=== PATIENT | female | born 1975 | race Caucasian/White ===

== ENCOUNTER 2020-07-13 07:08 | Outpatient (CLI) | payer OTHER, SELFPAY ==
[2020-07-13 08:36] LABS: Alanine Aminotransferase 29 U/L (14-59); Albumin Level 4.2 g/dL (3.4-5.0); Alkaline Phosphatase 40 U/L (46-116); Anion Gap 5 mmol/L (8-16); Aspartate Amino Transferase 15 U/L (15-37); Bilirubin,Total 0.4 mg/dL (0.00-1.00); Blood Urea Nitrogen 19 mg/dL (7-18); Carbon Dioxide 29 mmol/L (21-32); Chloride 102 mmol/L (98-108); Cholesterol 176 mg/dL (0-200); Estimated Glomerular Filt Rate > 60; Glucose 94 mg/dL (70-99); HDL Direct 48 mg/dL (40-60); LDL Cholesterol Calculated 116 mg/dL (<130); Osmolality Calculated 284 mOsm/kg (285-295); Potassium 4.6 mmol/L (3.5-5.1); Sodium 136 mmol/L (136-145); Total Protein 7.4 g/dL (6.4-8.2); Triglycerides 58 mg/dL (0-150)
== END 2020-07-13 07:09 | disposition home or self-care (01) ==
LOC: CHSLAB 07:15
PROVIDERS: PCP Family Medicine; Visit Provider Family Medicine
DX: E03.9 Hypothyroidism, unspecified (principal)
CPT/HCPCS: 36415; 80053; 80061; 84443

== ENCOUNTER 2021-01-25 06:49 | Outpatient (CLI) | payer OTHER, SELFPAY ==
[2021-01-25 08:04] LABS: Alanine Aminotransferase 27 U/L (14-59); Albumin Level 3.6 g/dL (3.4-5.0); Alkaline Phosphatase 32 U/L (46-116); Anion Gap 8 mmol/L (8-16); Aspartate Amino Transferase 13 U/L (15-37); Bilirubin,Total 0.4 mg/dL (0.00-1.00); Blood Urea Nitrogen 14 mg/dL (7-18); Calcium 8.7 mg/dL (8.5-10.1); Carbon Dioxide 27 mmol/L (21-32); Chloride 106 mmol/L (98-108); Cholesterol 145 mg/dL (0-200); Estimated Glomerular Filt Rate > 60; Glucose 101 mg/dL (70-99); HDL Direct 47 mg/dL (40-60); LDL Cholesterol Calculated 88 mg/dL (<130); Osmolality Calculated 292 mOsm/kg (285-295); Potassium 4.2 mmol/L (3.5-5.1); Sodium 141 mmol/L (136-145); Thyroid Stimulating Hormone 0.37 uIU/mL (0.36-3.74); Total Protein 6.6 g/dL (6.4-8.2); Triglycerides 52 mg/dL (0-150)
== END 2021-01-25 06:50 | disposition home or self-care (01) ==
LOC: CHSLAB 06:51
PROVIDERS: PCP Physician Assistant; Visit Provider Physician Assistant
DX: E03.9 Hypothyroidism, unspecified (principal); I10 Essential (primary) hypertension
CPT/HCPCS: 36415; 80053; 80061; 84443

== ENCOUNTER 2021-02-22 06:58 | Outpatient (CLI) | payer OTHER, SELFPAY ==
[2021-02-22 07:29] LABS: Hemoglobin A1C 5.2 % (<5.7)
[2021-02-22 08:18] LABS: Anion Gap 6 mmol/L (8-16); Blood Urea Nitrogen 17 mg/dL (7-18); Calcium 8.7 mg/dL (8.5-10.1); Carbon Dioxide 28 mmol/L (21-32); Chloride 105 mmol/L (98-108); Estimated Glomerular Filt Rate > 60; Free T4 Free Thyroxine 1.01 ng/dL (0.76-1.46); Glucose 95 mg/dL (70-99); Osmolality Calculated 289 mOsm/kg (285-295); Potassium 4.5 mmol/L (3.5-5.1); Sodium 139 mmol/L (136-145); Thyroid Stimulating Hormone 0.45 uIU/mL (0.36-3.74)
[2021-02-25 04:58] LABS: Thyroid Peroxidase Antibodies <1 IU/mL (<9)
[2021-02-26 07:05] LABS: FSH 10.5 mIU/mL (***); LH 3.6 mIU/mL (***); Total Triiodothyronine (T3) 88.3 ng/dL (76-181)
== END 2021-02-22 06:59 | disposition home or self-care (01) ==
LOC: CHSLAB 06:59
PROVIDERS: PCP Physician Assistant; Visit Provider Physician Assistant
DX: E03.9 Hypothyroidism, unspecified (principal); N95.1 Menopausal and female climacteric states; R73.01 Impaired fasting glucose
CPT/HCPCS: 36415; 80048; 83001; 83002; 83036; 84439; 84443; 84480; 86376

== ENCOUNTER 2021-03-15 09:12 | Outpatient (CLI) | payer OTHER, SELFPAY | END 2021-03-15 09:13 | disposition home or self-care (01) | LOC: CHSLAB 09:15 | PROVIDERS: Family Medicine; PCP Physician Assistant; Visit Provider Physician Assistant | DX: B34.9 Viral infection, unspecified (principal) | CPT/HCPCS: 36415; 87486; 87581; 87633 ==

== ENCOUNTER 2021-07-23 14:24 | Outpatient (CLI) | payer OTHER, SELFPAY ==
--- NOTE | ~2021-07-23 | MM_ITS ---
EXAMINATION: MM screening jose BI w awilda HISTORY: Screening mammogram TECHNIQUE: Craniocaudal and mediolateral oblique 3-D tomosynthesis images were obtained and synthetic 2-D images were generated. CAD analysis was submitted and interpreted. COMPARISON: None, baseline BREAST PARENCHYMAL COMPOSITION: The breasts are heterogeneously dense, which may obscure small masses . FINDINGS: RIGHT BREAST: There are indeterminate calcifications in the anterior third of the breast. In addition , there are possible masses in the middle third of the breast. LEFT BREAST: There is asymmetry in the middle third of the outer breast on the mediolateral oblique v iews as well as lateral view. IMPRESSION: 1. Bilateral breast findings as described above. 2. Additional mammographic views and possible breast ultrasound are recommended. BI-RADS Category 0: Incomplete: Needs additional imaging evaluation. Reviewed, dictated and finalized at location A. ICAL RESEARCH SPEC IMPRESSION: 1. Bilateral breast findings as described above. 2. Additional mammographic views and possible breast ultrasound are recommended . BI-RADS Category 0: Incomplete: Needs additional imaging evaluation.
== END 2021-07-23 14:25 | disposition home or self-care (01) ==
PROVIDERS: PCP Physician Assistant; Visit Provider Obstetrics & Gynecology
DX: Z12.31 Encounter for screening mammogram for malignant neoplasm of breast (principal); R92.8 Other abnormal and inconclusive findings on diagnostic imaging of breast
CPT/HCPCS: 77063; 77067

== ENCOUNTER 2021-08-26 11:46 | Outpatient (CLI) | payer OTHER, SELFPAY ==
--- NOTE | ~2021-08-26 | MMUS_ITS ---
EXAMINATION: MM diagnostic jose BI w awilda, US breast BI limited HISTORY: Right breast calcifications and left breast asymmetry on screening mammogram TECHNIQUE: Additional 3-D tomosynthesis images of the breasts were performed and synthetic 2-D images were generated. Indication a also obtained of the right breast. CAD analysis was submitted and interpreted. High reso lution limited bilateral breast ultrasound was performed. COMPARISON: 07/23/2021 FINDINGS: MAMMOGRAPHIC FINDINGS: Right breast calcifications are amorphous on the craniocaudal view and linear on the lateral view, co nsistent with milk of calcium. There is a 6 mm oval, obscured, equal density mass in the middle third of the outer breast at the 9:00 location 6 cm from the nipple. Left breast: There is a 4 mm oval, circumscribed, equal density mass in the middle third of the lower -outer breast at the 5:00 location 7.5 cm from the nipple. In addition, there are grouped, punctate c alcifications in the anterior/middle third of the outer breast at the 3:00 location which are likely round in morphology. ULTRASOUND: Right breast: There is a 5 mm oval, circumscribed, parallel, hypoechoic mass with no posterior featur es or internal vascularity at the 9:00 location 2 cm from the nipple. Left breast: There is a 3 mm round, circumscribed, hypoechoic mass at the 5:00 location 1 cm from the nipple with no posterior features or internal vascularity. IMPRESSION: 1. Probably benign bilateral breast masses and probably benign calcifications of the left breast. 2. Recommend 6 month follow-up bilateral diagnostic mammogram and ultrasound. BI-RADS category 3, probably benign findings. Reviewed, dictated and finalized at location A. ISHING PRESS OPERATOR IMPRESSION: 1. Probably benign bilateral breast masses and probably benign calcifications o f the left breast. 2. Recommend 6 month follow-up bilateral diagnostic mammogram and ultrasound. BI-RADS category 3, probably benign findings.
== END 2021-08-26 11:47 | disposition home or self-care (01) ==
LOC: ANHIMG 11:47
PROVIDERS: PCP Physician Assistant; Visit Provider Obstetrics & Gynecology
DX: N64.89 Other specified disorders of breast (principal); R92.8 Other abnormal and inconclusive findings on diagnostic imaging of breast
CPT/HCPCS: 76642; 77062; 77066; G0279

== ENCOUNTER 2022-01-20 07:47 | Outpatient (CLI) | payer OTHER, SELFPAY ==
[2022-01-20 18:59] LABS: Alanine Aminotransferase 27 U/L (6-35); Albumin Level 4.7 g/dL (3.5-5.1); Alkaline Phosphatase 40 U/L (38-126); Anion Gap 10 mmol/L (8-16); Aspartate Amino Transferase 23 U/L (14-36); Bilirubin,Total 0.6 mg/dL (0.2-1.3); Blood Urea Nitrogen 20 mg/dL (7-17); Calcium 9.1 mg/dL (8.4-10.2); Carbon Dioxide 28 mmol/L (22-30); Chloride 101 mmol/L (98-107); Cholesterol 184 mg/dL (0-200); Estimated Glomerular Filt Rate > 60; Glucose 86 mg/dL (65-110); HDL Direct 50 mg/dL; Potassium 4.6 mmol/L (3.4-5.0); Sodium 139 mmol/L (137-145); Triglycerides 55 mg/dL (<150)
[2022-01-20 19:14] LABS: LDL Cholesterol Direct 100 mg/dL
[2022-01-20 20:17] LABS: Hemoglobin A1C 5.1 % (<5.7)
== END 2022-01-20 07:48 | disposition home or self-care (01) ==
PROVIDERS: PCP Physician Assistant; Visit Provider Physician Assistant
DX: E03.9 Hypothyroidism, unspecified (principal); R73.01 Impaired fasting glucose
CPT/HCPCS: 36415; 80053; 80061; 83036; 84443

== ENCOUNTER 2022-02-07 19:24 | Emergency (ER) | payer OTHER, SELFPAY ==
--- NOTE | ~2022-02-07 | XR_ITS ---
XR ankle LT min 3V 02/07/2022 19:50 INDICATION: Left ankle pain and swelling PROCEDURE: 4 views left ankle COMPARISON: No prior studies for comparison. FINDINGS: Fracture, dislocation or subluxation is not identified. There are degenerative calcaneal en thesophytes. There is a small ossific density just distal to the medial malleolus, likely related to remote trauma given the lack of associated soft tissue swelling. There is moderate lateral soft tissu e swelling. The soft tissues appear within normal limits. No foreign bodies are identified. IMPRESSION: 1: NO ACUTE BONE OR JOINT ABNORMALITY IDENTIFIED. Reviewed, dictated and finalized at location A.
[2022-02-07 19:28] VITALS: BP 116/65; PULSE 64; RESP 18; TEMP 36.6; O2SAT 100
--- NOTE | 2022-02-07 20:19 | ED_ITS ---
HPI - Extremity Injury (Lower) General Chief Complaint: Extremity Injury, Lower Stated Complaint: Left ankle injury Time Seen by Provider: 02/07/22 19:42 Source: patient and family Mode of arrival: ambulatory Limitations: no limitations History of Present Illness HPI Narrative: 46 years old white female presents with pain at the LT ankle after stepping out of her truck in a hole in the ground. She denies other injuries. Related Data Allergies Allergy/AdvReac Type Severity Reaction Status Date / Time bupropion [Wellbutrin] Allergy Intermediate Swelling Verified 02/07/22 19:32 of Lip/Tongue/Throat doxycycline Allergy Intermediate Hives Verified 02/07/22 19:32 Review of Systems Review of Systems: All systems reviewed & are unremarkable except as noted in HPI and below PMFSH Past Medical History Medical History Calcification of right breast on mammography Exam Narrative: General appearance: Well-developed, well-nourished Skin: Normal color Head: Normocephalic, nontraumatic Neck: Supple, nontender Vascular: Normal peripheral pulses, normal capillary refill. Musculoskeletal: LT ankle showed diffuse tenderness laterally. No swelling, no deformity, no bruises Neurologic: Alert and oriented ?3, NEUROPSYCHOLOGY SERVICE DIRECTOR is normal as tested, no gross motor deficit Course Vital Signs Vital signs: Vital Signs Temperature 36.6 C 02/07/22 19:28 Pulse Rate 64 02/07/22 19:28 Respiratory Rate 18 02/07/22 19:28 Blood Pressure 116/65 02/07/22 19:28 Pulse Oximetry 100 02/07/22 19:28 Oxygen Delivery Room Air 02/07/22 19:28 Temperature 36.6 C 02/07/22 19:28 Pulse Rate 64 02/07/22 19:28 Respiratory Rate 18 02/07/22 19:28 Blood Pressure 116/65 02/07/22 19:28 Pulse Oximetry 100 02/07/22 19:28 Oxygen Delivery Room Air 02/07/22 19:28 MDM - Extremity Injury (Lower) Imaging Data Radiologist's impression: Impressions Ankle X-Ray 02/07/22 19:52 IMPRESSION: 1: NO ACUTE BONE OR JOINT ABNORMALITY IDENTIFIED. Critical Care Time Critical Care Time Critical Care Time: No Discharge Plan Discharge Clinical Impression: Ankle sprain and strain Patient Disposition: Home, Self-Care Condition: Stable Instructions: Antibiotic Form, Ankle Sprain (ED), Ankle Stirrup Splint (ED) Additional Instructions: Return if symptoms are worsening , call your family physician for appointment, take Tylenol as as needed for aches and pain, continue home medications. Keep foot elevated, crutches, ice pack 20 minutes/h for the next 24 hours Prescriptions: New naproxen [Naprosyn] 500 mg tablet 500 mg PO BID PRN (Reason: pain) Qty: 14 0RF Follow-up/Referrals: Maki,SONIA Rahman [Primary Care Provider] -
[2022-02-07 21:17] VITALS: PULSE 72; RESP 17; O2SAT 98
== END 2022-02-07 21:23 | disposition home or self-care (01) ==
PROVIDERS: Emergency Provider Emergency Medicine; PCP Physician Assistant
DX: S93.402A Sprain of unspecified ligament of left ankle, initial encounter (principal); S96.912A Strain of unspecified muscle and tendon at ankle and foot level, left foot, initial encounter; X50.9XXA Other and unspecified overexertion or strenuous movements or postures, initial encounter
CPT/HCPCS: 73610; 99283

== ENCOUNTER 2022-05-20 08:23 | Outpatient (CLI) | payer OTHER, SELFPAY ==
[2022-05-20 18:58] LABS: Free T4 Free Thyroxine 1.64 ng/mL (0.78-2.19)
[2022-05-20 19:12] LABS: Total Triiodothyronine (T3) 0.95 NG/ML (0.97-1.69)
== END 2022-05-20 08:24 | disposition home or self-care (01) ==
LOC: ANHASCLAB 08:26
PROVIDERS: PCP Physician Assistant; Visit Provider Family Medicine
DX: E03.9 Hypothyroidism, unspecified (principal)
CPT/HCPCS: 36415; 84439; 84443; 84480

== ENCOUNTER 2022-05-27 08:20 | Outpatient (CLI) | payer OTHER, SELFPAY ==
[2022-05-27 19:24] LABS: Free T4 Free Thyroxine 1.19 ng/mL (0.78-2.19)
[2022-05-27 19:35] LABS: Total Triiodothyronine (T3) 0.86 NG/ML (0.97-1.69)
== END 2022-05-27 08:21 | disposition home or self-care (01) ==
PROVIDERS: PCP Physician Assistant; Visit Provider Family Medicine
DX: E03.9 Hypothyroidism, unspecified (principal)
CPT/HCPCS: 36415; 84439; 84443; 84480

== ENCOUNTER 2022-05-30 12:59 | Emergency (ER) | payer OTHER, SELFPAY ==
[2022-05-30 13:15] VITALS: BP 114/74; PULSE 70; RESP 18; TEMP 36.8; O2SAT 99
[2022-05-30 13:39] LABS: Basophils Percent Auto 0.3 % (0.2-1.2); Eosinophils Percent Auto 0.6 % (0-4.4); Hematocrit 45.2 % (37.0-47.0); Hemoglobin 15.8 g/dL (12.0-15.0); Immature Granulocyte Absolute 0.03 K/mm3 (0.00-0.031); Immature Granulocyte Percent A 0.4 % (0-0.5); Lymphocytes Absolute Auto 1.41 K/mm3 (0.9-3.2); Lymphocytes Percent Auto 20.3 % (18.3-44.2); Mean Corpuscular Hemoglobin 30.4 pg (26-34); Mean Corpuscular Volume 86.9 fl (80-100); Mean Platelet Volume 9.7 fl (7.4-10.4); Monocytes Absolute Auto 0.9 K/mm3 (0.1-0.6); Monocytes Percent Auto 13.1 % (2.6-8.5); Neutrophils Absolute Auto 4.5 K/mm3 (1.3-6.7); Neutrophils Percent Auto 65.3 % (45.5-73.1); Platelet Count Result 275 k/mm3 (150-375); White Blood Count 6.9 K/mm3 (4.5-10.0)
[2022-05-30 13:50] LABS: Alanine Aminotransferase 54 U/L (6-35); Albumin Level 4.5 g/dL (3.5-5.1); Alkaline Phosphatase 27 U/L (38-126); Anion Gap 9 mmol/L (8-16); Aspartate Amino Transferase 37 U/L (14-36); Bilirubin,Total 0.5 mg/dL (0.2-1.3); Blood Urea Nitrogen 15 mg/dL (7-17); Calcium 8.3 mg/dL (8.4-10.2); Carbon Dioxide 24 mmol/L (22-30); Chloride 98 mmol/L (98-107); Estimated CRCL calculation 96 ml/min; Estimated Glomerular Filt Rate > 60; Glucose 85 mg/dL (65-110); Lipase 44 U/L (23-300); Potassium 3.3 mmol/L (3.4-5.0); Sodium 131 mmol/L (137-145)
--- NOTE | 2022-05-30 13:55 | ED.GENADULT ---
HPI - General Adult General Chief complaint: Nausea/Vomiting/Diarrhea Stated complaint: diarrhea, vomiting Time Seen by Provider: 05/30/22 13:26 History of Present Illness HPI narrative: 47-year-old female presenting to the emergency department for evaluation of nausea vomiting and diarrhea. Patient states Wednesday she started having the nausea on she had onset of diarrhea. Patient does report intermittent associated abdominal cramping. Patient reports he has had a history of a but states she still has her gallbladder and her appendix. Patient denies any prior history of C. difficile. Related Data Allergies Allergy/AdvReac Type Severity Reaction Status Date / Time bupropion [Wellbutrin] Allergy Intermediate Swelling Verified 05/30/22 13:23 of Lip/Tongue/Throat doxycycline Allergy Intermediate Hives Verified 05/30/22 13:23 Review of Systems Review of Systems: CONSTITUTIONAL: Denies fever, chills, or sweats. EYES: Denies visual changes, redness, or discharge. ENT: Denies rhinorrhea, congestion, sore throat, or otalgia. CARDIOVASCULAR: Denies chest pain, palpitations, or edema. RESPIRATORY: Denies cough or dyspnea. GASTROINTESTINAL: See HPI GENITOURINARY: Denies dysuria or hematuria. SKIN: Denies rash or itching. MUSCULOSKELETAL: Denies back pain, joint pain, or myalgia. NEUROLOGIC: Denies headache, numbness, or weakness. [facility] Past Medical History Medical History Calcification of right breast on mammography Exam Narrative: APPEARANCE: Well appearing, no pain, no distress, well-nourished. HEAD: normocephalic, atraumatic. EYES: PERRLA/EOMI, conjunctivae clear. NOSE: Normal no drainage EARS:TMS clear with good light reflex. THROAT: Pharynx clear, no exudate. NECK: Supple. No adenopathy, no masses. RESPIRATORY: Airway patent, respirations nonlabored. Clear to auscultation bilaterally, no rales, rhonchi, wheezing. CARDIOVASCULAR: Regular rate and rhythm without murmurs rubs or gallops. ABDOMINAL: Soft, nontender, nondistended, normal bowel sounds MUSCULOSKELETAL: Moves all extremities. Strength/ROM intact, No edema, No calf tenderness. NEURO: Alert. Cranial nerves II through XII intact. Grossly intact SKIN: Warm, dry. Normal Color Course Course Emergency Course: Patient has minimal tenderness to palpation. Patient is afebrile with no leukocytosis. Patient's sodium was 131 and potassium was 3.3. Patient was treated with a liter of lactated Ringer's. Patient did feel improved with treatment. Patient was negative for influenza COVID and C. difficile. Patient was updated on the results of her work-up and plan for treatment at home. All questions concerns were addressed. Vital Signs Vital signs: Vital Signs Temperature 98.3 F 05/30/22 13:15 Pulse Rate 70 05/30/22 13:15 Respiratory Rate 18 05/30/22 13:15 Blood Pressure 114/74 05/30/22 13:15 Pulse Oximetry 99 05/30/22 13:15 Oxygen Delivery Room Air 05/30/22 13:15 Temperature 98.3 F 05/30/22 13:15 Pulse Rate 69 05/30/22 17:15 Respiratory Rate 18 05/30/22 17:15 Blood Pressure 115/68 05/30/22 17:15 Pulse Oximetry 100 05/30/22 17:15 Oxygen Delivery Room Air 05/30/22 13:15 Medical Decision Making Vital Signs Vital Signs: Vital Signs Temperature 98.3 F 05/30/22 13:15 Pulse Rate 70 05/30/22 13:15 Respiratory Rate 18 05/30/22 13:15 Blood Pressure 114/74 05/30/22 13:15 Pulse Oximetry 99 05/30/22 13:15 Oxygen Delivery Room Air 05/30/22 13:15 Temperature 98.3 F 05/30/22 13:15 Pulse Rate 69 05/30/22 17:15 Respiratory Rate 18 05/30/22 17:15 Blood Pressure 115/68 05/30/22 17:15 Pulse Oximetry 100 05/30/22 17:15 Oxygen Delivery Room Air 05/30/22 13:15 Lab Data Lab results reviewed: Yes I reviewed the patient's lab results. 05/30/22 13:30 05/30/22 13:30 Labs: Lab Resul
[2022-05-30 13:58] LABS: Influenza A QL RT-PCR Negative (Negative); Influenza B QL RT-PCR Negative (Negative); SARS-CoV-2 RNA PCR Negative
[2022-05-30] MEDS: LACTATED RINGERS 1,000 ML 999 ML IV CONT (14:06)
[2022-05-30 15:34] LABS: Appearance Urine Clear (Clear); Bilirubin Urine 1+ (Negative); Blood Urine Negative (Negative); Color Urine Yellow (Yellow); Glucose Urine UA Negative (Negative); Ketones Urine 1+ mg/dL (Negative); Leukocyte Esterase Ur Negative LEU/UL (Negative); Nitrate Urine Negative (Negative); Protein Urine 1+ mg/dL (Negative); Urobilinogen Urine 0.2 mg/dL (<2.0)
[2022-05-30 15:41] LABS: Bacteria Urine Trace /hpf; Mucus Urine Rare /lpf; RBC Urine 0-2 /hpf (0-2)
[2022-05-30 15:43] LABS: Add Urine Microscopic? YES
[2022-05-30 16:42] VITALS: BP 113/70; PULSE 69; RESP 18; O2SAT 99
[2022-05-30 16:51] LABS: Toxigenic C. Diff NEGATIVE (NEGATIVE)
[2022-05-30] MEDS: ONDANSETRON INJ 4 MG/2 ML VIAL IV PUSH (17:04)
[2022-05-30 17:15] VITALS: BP 115/68; PULSE 69; RESP 18; O2SAT 100
== END 2022-05-30 17:20 | disposition home or self-care (01) ==
PROVIDERS: Physician Assistant; Emergency Provider Emergency Medicine; PCP Family Medicine
DX: R11.2 Nausea with vomiting, unspecified (principal); Z20.822 Contact with and (suspected) exposure to COVID-19
CPT/HCPCS: 36415; 80053; 81001; 83690; 85025; 87045; 87427; 87493; 87636; 89055; 96361; 96374; 99284; J2405; J7120

== ENCOUNTER 2022-05-31 17:26 | Observation (INO) | payer OTHER, SELFPAY ==
[2022-05-31] VITALS (10 sets, daily range): BP systolic 104–144; BP diastolic 53–92; PULSE 57–77; RESP 13–19; TEMP 36.7–37.5; O2SAT 97–100; BMI 28.9
--- NOTE | ~2022-05-31 | CT_ITS ---
EXAMINATION: CT abdomen pelvis w con DATE: 05/31/2022 19:15 INDICATION: abd pain, diarrhea TECHNIQUE: Computed tomography (CT) of the abdomen and pelvis was performed with 100 mL Omnipaque-350 intravenous contrast. Automated exposure control and iterative reconstruction technique were employe d. The dose-length product was 573.11 mGy-cm. COMPARISON: None. FINDINGS: Lower thorax: Small hiatal hernia. Liver: Normal. Biliary/Gallbladder: Gallbladder is normal. No bile duct dilation. Pancreas: No mass or duct dilation. Spleen: Normal. Adrenals:No mass. Kidneys: No mass, stone, or hydronephrosis. GI tract: Distal esophageal and gastric wall edema. No small or large bowel dilation. Normal appendix . Mild diverticulosis without diverticulitis. Mostly fluid content in the large bowel. Mesentery/Peritoneum: No ascites, mass, or free air. Retroperitoneum: No mass. Mild atherosclerotic abdominal aortic and/or arterial calcifications. Pelvis: Partially filled urinary bladder with mild wall thickening. Normal uterus. Corpus luteal cyst s. Small volume free pelvic fluid, within physiologic range. Soft Tissues: Soft tissues and body wall unremarkable. Bones: No acute osseous finding. IMPRESSION: Hepatomegaly with steatosis. Mesenteric lymphadenopathy. Fluid-filled colon as can be seen with diarr heal illness. Bladder wall thickening likely secondary to under distention. Two corpus luteal cysts a re present in the right ovary, consider testing. Reviewed, dictated and finalized at location K. SAWYER IMPRESSION: Hepatomegaly with steatosis. Mesenteric lymphadenopathy. Fluid-filled colon as can be seen with diarrheal illness. Bladder wall thickening likely secondary to under distention. Two corpus luteal cysts are present in the right ovary, cons ider testing.
--- NOTE | ~2022-05-31 | US_ITS ---
US abdomen limited INDICATION: Transaminitis. PROCEDURE: Realtime right upper abdominal ultrasound. COMPARISON: No prior studies for comparison. FINDINGS: The pancreas is normal without focal mass or pancreatic ductal dilation. Liver echotexture is normal without focal mass or intrahepatic biliary dilatation. There is normal directional flow i n the portal vein. The gallbladder is normal without stones, gallbladder wall thickening or pericholecystic fluid. Comm on bile duct measures 3 mm. No sonographic Thacker's sign. IMPRESSION: 1: Normal limited abdominal ultrasound. Reviewed, dictated and finalized at location A. [employer]
--- NOTE | 2022-05-31 17:45 | ED.ABDPAIN ---
HPI - Abdominal Pain General Chief Complaint: Abdominal Pain <SONIA Harris Last Filed: 05/31/22 21:06> Stated Complaint: abdominal pain, n/v/d <SONIA Harris Last Filed: 05/31/22 21:06> Time Seen by Provider: 05/31/22 17:36 <SONIA Harris Last Filed: 05/31/22 21:06> Source: patient <SONIA Harris Last Filed: 05/31/22 21:06> Mode of arrival: ambulatory <SONIA Harris Last Filed: 05/31/22 21:06> Limitations: no limitations <SONIA Harris Last Filed: 05/31/22 21:06> History of Present Illness HPI narrative: This is a 47 year old female that presents to the ER for abdominal pain ongoing over the last 4 days. Reports associated nausea, vomiting and diarrhea. Reports she is having a lot of abdominal cramping and gas. She was evaluated in the ER yesterday and stool studies were sent. Reports worsening pain which prompted her to be seen again. Denies fever, or dysuria. <SONIA Harris Last Filed: 05/31/22 21:06> Related Data Home Medications: Home Medications Medication Instructions Recorded Confirmed fluoxetine 20 mg capsule 20 mg PO DAILY 05/31/22 05/31/22 <SONIA Harris Last Filed: 05/31/22 21:06> Allergies/Adverse Reactions: Allergies Allergy/AdvReac Type Severity Reaction Status Date / Time bupropion [Wellbutrin] Allergy Intermediate Swelling Verified 05/31/22 17:54 of Lip/Tongue/Throat doxycycline Allergy Intermediate Hives Verified 05/31/22 17:54 <SONIA Harris Last Filed: 05/31/22 21:06> Review of Systems Review of Systems: CONSTITUTIONAL: Denies fever GASTROINTESTINAL: Reports abdominal pain, nausea, vomiting, and diarrhea. GENITOURINARY: Denies dysuria or hematuria. <SONIA Harris Last Filed: 05/31/22 21:06> All systems reviewed & are unremarkable except as noted in HPI and below <Emma Mitchell PA-C - Last Filed: 05/31/22 21:06> PMFSH Past Medical History Medical History: Medical History (Updated 05/31/22 @ 21:06 by Emma Mitchell PA-C) Calcification of right breast on mammography History of hypertension History of hypothyroidism <Emma Mitchell PA-C - Last Filed: 05/31/22 21:06> Social History Social History: Social History (Updated 05/31/22 @ 18:50 by Emma Mitchell PA-C) Smoking status: Never smoker <Emma Mitchell PA-C - Last Filed: 05/31/22 21:06> Exam Narrative: GENERAL: Well-appearing, well-nourished, and in no acute distress. HEAD: Normocephalic, atraumatic. EYES: EOMI. CHEST: Clear to auscultation. No respiratory distress. No wheezes rales or rhonchi HEART: Regular rate and rhythm. No murmur heard. Normal peripheral pulses. ABDOMEN: Soft, nondistended, normal active bowel sounds. Tenderness to palpation throughout the abdomen, without guarding EXTREMITIES: Normal range of motion. No edema. SKIN: Warm, dry, no rash. NEURO: No focal deficits. Alert and oriented x3. PSYCH: Normal mood and affect <Emma Mitchell PA-C - Last Filed: 05/31/22 21:06> Course CONTACT WORKER/PA Physician Supervision For this patient encounter, I reviewed the CONTACT WORKER or PA documentation, treatment plan, and medical decision making; and I had [id number] time with this patient. <Jefry Hernandez MD - Last Filed: 05/31/22 21:51> Consultations Consultation #1: Spoke with hospitalist about patient and work-up who accepts admission <Emma Mitchell PA-C - Last Filed: 05/31/22 21:06> Date: 05/31/22 <Emma Mitchell PA-C - Last Filed: 05/31/22 21:06> Time: 21:06 <Emma Mitchell PA-C - Last Filed: 05/31/22 21:06> Vital Signs Vital signs: Vital Signs Temperature 99.5 F 05/31/22 17:29 Pulse Rate 73 05/31/22 17:29 Respiratory Rate 14 05/31/22 17:29 Blood Pressure 104/67 05/31/22 17:29 Pulse Oximetry 100 05/31/22 17:29 Temperature 99.5 F 05/31/22 17:29 Pulse Rate 57 L 05/31/22 21:
[2022-05-31 17:58] LABS: Basophils Percent Auto 0.2 % (0.2-1.2); Eosinophils Absolute Auto 0.2 K/mm3 (0-0.3); Eosinophils Percent Auto 1.6 % (0-4.4); Hematocrit 45.7 % (37.0-47.0); Hemoglobin 16.1 g/dL (12.0-15.0); Immature Granulocyte Absolute 0.02 K/mm3 (0.00-0.031); Immature Granulocyte Percent A 0.2 % (0-0.5); Lymphocytes Percent Auto 24.9 % (18.3-44.2); Mean Corpuscular HGB Conc 35.2 g/dl (32-36); Mean Corpuscular Hemoglobin 30.4 pg (26-34); Mean Corpuscular Volume 86.2 fl (80-100); Mean Platelet Volume 9.8 fl (7.4-10.4); Monocytes Absolute Auto 0.8 K/mm3 (0.1-0.6); Monocytes Percent Auto 8.2 % (2.6-8.5); Neutrophils Absolute Auto 6.3 K/mm3 (1.3-6.7); Neutrophils Percent Auto 64.9 % (45.5-73.1); Platelet Count Result 327 k/mm3 (150-375); White Blood Count 9.6 K/mm3 (4.5-10.0)
[2022-05-31 18:13] LABS: Alanine Aminotransferase 333 U/L (6-35); Albumin Level 4.7 g/dL (3.5-5.1); Alkaline Phosphatase 35 U/L (38-126); Anion Gap 11 mmol/L (8-16); Aspartate Amino Transferase 229 U/L (14-36); Bilirubin,Total 0.5 mg/dL (0.2-1.3); Blood Urea Nitrogen 7 mg/dL (7-17); Calcium 8.6 mg/dL (8.4-10.2); Carbon Dioxide 24 mmol/L (22-30); Chloride 102 mmol/L (98-107); Estimated CRCL calculation 78 ml/min; Estimated Glomerular Filt Rate > 60; Glucose 87 mg/dL (65-110); Lipase 64 U/L (23-300); Potassium 2.9 mmol/L (3.4-5.0); Sodium 137 mmol/L (137-145)
[2022-05-31] MEDS: SODIUM CHLORIDE 0.9% IV 1,000 ML 999 ML IV CONT (18:13)
[2022-05-31 19:07] LABS: Appearance Urine Clear (Clear); Bilirubin Urine Negative (Negative); Blood Urine Trace-intact (Negative); Color Urine Yellow (Yellow); Glucose Urine UA Negative (Negative); Ketones Urine Negative (Negative); Leukocyte Esterase Ur Negative LEU/UL (Negative); Nitrate Urine Negative (Negative); Protein Urine Negative (Negative); Specific Grav Ur <= 1.005 (1.001-1.035); Urobilinogen Urine 0.2 mg/dL (<2.0); pH Urine 5.5 (5.0-9.0)
[2022-05-31 19:16] LABS: Bacteria Urine Trace /hpf; Mucus Urine Rare /lpf; RBC Urine 0-2 /hpf (0-2); WBC Urine 0-3 /hpf
[2022-05-31 19:17] LABS: Add Urine Microscopic? YES
[2022-05-31] MEDS: POTASSIUM CHLORIDE INJ 40 MEQ in SODIUM CHLORIDE 0.9% IV 500 ML 130 MEQ IVPB (19:25)
[2022-05-31 19:43] LABS: Pregnancy On Board Control Positive; Urine Pregnancy Test Negative
[2022-05-31 20:19] LABS: Hepatitis B Surface Antigen Negative (Negative)
[2022-05-31 20:24] LABS: HAV RESULT Negative (Negative); Hepatitis B Core IgM Result Negative (Negative)
[2022-05-31 20:36] LABS: Hepatitis C Virus Antibody Negative (Negative)
--- NOTE | 2022-05-31 20:56 | PM.IMHP ---
H&P: HPI History of Present Illness Date/Time: 05/31/22 20:56 Chief Complaint: Diarrhea. Narrative: This is a 47-year-old female past medical history significant for hypertension, hypothyroidism, depression. 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 Denies any cough, sputum production. patient had been seen the day before in the emergency room and sent home however returns today after she lost count of number of diarrhea episodes. patient tested negative for COVID, influenza, hepatitis-A and B screening Preliminary workup was significant for potassium of 2.9, WBC count of 15,000, AST in the low 1000. CT of abdomen and pelvis was reported as: IMPRESSION: Hepatomegaly with steatosis. Mesenteric lymphadenopathy. Fluid-filled colon as can be seen with diarrheal illness. Bladder wall thickening likely secondary to under distention. Two corpus luteal cysts are present in the right ovary, consider testing. Review of Systems Review of Systems: diarrhea Constitutional: Constitutional: Denies chills, Denies fever(s), Denies malaise and Denies night sweats Eyes: Eyes: Denies change in vision ENT: Denies dysphagia, Denies vertigo, Denies dizziness and Denies odynophagia Cardiovascular: Cardiovascular: Denies chest pain, Denies irregular heart rhythm, Denies lightheadedness and Denies palpitations Respiratory: Respiratory: Denies cough, Denies pain on inspiration, Denies dyspnea on exertion and Denies wheezing Gastrointestinal: Gastrointestinal: Denies abdominal pain, Denies dyspepsia, Denies heartburn, Reports diarrhea, Denies nausea and Denies vomiting Genitourinary: Genitourinary: Denies dysuria Musculoskeletal: Musculoskeletal: Denies back pain, Denies myalgias, Denies joint swelling and Denies muscle weakness Integumentary/Breasts: Skin/Breast: Denies rash Neurologic: Denies vertigo, Denies dizziness, Denies focal weakness and Denies Sensory deficit (Neuro) Psychiatric: Psychiatric: Reports no additional psychiatric complaints and Reports as per HPI Endocrine: Endocrine: Denies cold intolerance, Denies flushing, Denies heat intolerance, Denies polyphagia, Denies polydipsia and Denies palpitations Hematologic/Lymphatic: Hematologic/Lymphatic: Reports no additional hematologic/lymphatic complaints and Reports as per HPI Allergic/Immunologic: Allergic/Immunologic: Reports no additional allergic/immunologic complaints and Reports as per HPI PMFSH Past Medical History Medical History (Updated 05/31/22 @ 21:06 by Emma Mitchell PA-C) Calcification of right breast on mammography History of hypertension History of hypothyroidism Family History Family History (Updated 05/31/22 @ 22:56 by Josephine Gomez RN) Mother Diabetes mellitus Sepsis Father Heart attack Emphysema of lung Social History Social History (Updated 05/31/22 @ 18:50 by Emma Mitchell PA-C) Smoking packs per day: 1 Smoking cigarettes per day: 20.0 Smoking status: Former smoker Alcohol intake: current Drinks per week: 1 Substance use: never Lack of Transportation: No Lack of Food: Never True Current Housing: I Have Housing Concerned About Future Housing: No Difficulty Paying Gas/Electric Bills: No Difficulty Paying for Meds: No Currently Unemployed: No Education: High School Diploma/GED Difficulty w/ Childcare or Family Care: No Spiritual care concerns: No Meds Home Medications and Allergies Home Medications Medication Instructions Recorded Confirmed Type ondansetron 4 mg disintegrating 4 mg PO Q
--- NOTE | 2022-05-31 20:59 | ECG_ITS ---
Measurements Intervals [place] Rate: 56 P: 71 MA: 161 QRS: 59 QRSD: 93 T: 57 QT: 402 QTc: 390 Interpretive Statements SINUS BRADYCARDIA NO PREVIOUS ECG AVAILABLE FOR COMPARISON Electronically Signed On 06-01-2022 11:16:22 SHEET MUSIC SALESPERSON by Jaylyn Renner M.D.
--- NOTE | 2022-05-31 22:36 | ADMGEN ---
This patient, Anna Vera, was admitted to Medical Room 252-01. Patient/family oriented to hospital policies and general routines including ID bracelet, bed and alarms, visiting hours, pain management, procedures, bathroom and other care routines, personal items, smoking policy, room service/diet, and visiting hours. Information on how to activate the Rapid Response Team has been discussed. Patient/Family are encouraged to report perceived risks to care and to ask questions if they do not understand what they are told or what they should do.
[2022-05-31 23:34] LABS: Magnesium 1.9 mg/dL (1.6-2.3)
[2022-06-01] VITALS (9 sets, daily range): BP systolic 104–110; BP diastolic 50–61; PULSE 56–72; RESP 16–18; TEMP 36.4–37.1; O2SAT 96–98
[2022-06-01] MEDS: DEXTROSE 5%/0.45% SOD CHL 1,000 ML 75 ML IV CONT (00:23)
[2022-06-01 06:44] LABS: Basophils Percent Auto 0.4 % (0.2-1.2); Eosinophils Absolute Auto 0.2 K/mm3 (0-0.3); Eosinophils Percent Auto 2.7 % (0-4.4); Hematocrit 38.9 % (37.0-47.0); Hemoglobin 13.4 g/dL (12.0-15.0); Immature Granulocyte Absolute 0.03 K/mm3 (0.00-0.031); Immature Granulocyte Percent A 0.4 % (0-0.5); Lymphocytes Absolute Auto 2.86 K/mm3 (0.9-3.2); Lymphocytes Percent Auto 40.3 % (18.3-44.2); Mean Corpuscular HGB Conc 34.4 g/dl (32-36); Mean Corpuscular Hemoglobin 29.8 pg (26-34); Mean Corpuscular Volume 86.6 fl (80-100); Mean Platelet Volume 9.9 fl (7.4-10.4); Monocytes Absolute Auto 0.7 K/mm3 (0.1-0.6); Monocytes Percent Auto 9.6 % (2.6-8.5); Neutrophils Absolute Auto 3.3 K/mm3 (1.3-6.7); Neutrophils Percent Auto 46.6 % (45.5-73.1); Platelet Count Result 269 k/mm3 (150-375); Red Blood Count 4.49 M/mm3 (4.2-5.4); Red Cell Distribution Width 12.1 % (11.5-14.5); White Blood Count 7.1 K/mm3 (4.5-10.0)
[2022-06-01 07:03] LABS: Alanine Aminotransferase 380 U/L (6-35); Albumin Level 3.5 g/dL (3.5-5.1); Alkaline Phosphatase 28 U/L (38-126); Anion Gap 6 mmol/L (8-16); Aspartate Amino Transferase 213 U/L (14-36); Bilirubin,Total 0.4 mg/dL (0.2-1.3); Blood Urea Nitrogen 5 mg/dL (7-17); Calcium 7.8 mg/dL (8.4-10.2); Carbon Dioxide 26 mmol/L (22-30); Chloride 103 mmol/L (98-107); Estimated CRCL calculation 94 ml/min; Estimated Glomerular Filt Rate > 60; Glucose 88 mg/dL (65-110); Potassium 3.1 mmol/L (3.4-5.0); Sodium 135 mmol/L (137-145)
--- NOTE | 2022-06-01 07:48 | PM.IMPN ---
Progress Note: A&P Assessment and Plan (1) Acute diarrhea: Code(s): R19.7 - Diarrhea, unspecified Status: Acute Assessment and Plan: She presented to the ED with c/o abd pain and diarrhea x [address] abd pelvis showed fluid-filled suggestive of diarrheal illness. Stool studies obtained from 05/30 ED visit negative. negative for hepatitis A and B GI consulted and appreciate recommendations. She was started on Ciprofloxacin PO BID and metronidazole TID, started 06/01 Diet advanced as tolerated. Continue IV fluids until able to take PO. Continue IV analgesics and antiemetics. (2) Transaminitis: Code(s): R74.01 - Elevation of levels of liver transaminase levels Status: Acute Assessment and Plan: AST/ALT elevated, Tbili and Alk phos within normal limits. CT abd/pelvis showed normal gallbladder and liver. right upper quadrant normal exam. Hepatitis panel negative. Trend LFTs. (3) Acute dehydration: Code(s): E86.0 - Dehydration Status: Acute Assessment and Plan: 2/2 volume loss from acute diarrhea. Continue IV fluids Monitor I/O and vital signs (4) Acute hypokalemia: Code(s): E87.6 - Hypokalemia Status: Acute Assessment and Plan: K 2.9 this admission. 2/2 acute diarrhea. She was given 40 mEQ IVPB on admission. 06/01/22 K 3.1 given additional 40 mEQ IVPB x1 and KCl added to maintenance fluids Monitor BMP Monitored on telemetry until hypokalemia resolved- no arrhythmia or ectopy. Plan CODE STATUS: FULL CODE Disposition: Observation Discharge disposition: home, possible discharge in am if tolerating diet. Time Spent With Patient Time with patient: 15 - 25 minutes Subjective Date/time seen: 06/01/22 07:48 She denies abdominal pain at this time. She does endorse frequent watery stools and 1 episode of emesis in the past few days, prior to admission. She denies fever, known sick contacts, antibiotic use in years, new or changes in medications. She thought her symptoms may have been secondary to bad food from this weekend, but none of her family is sick. She denies known episodes of diverticulitis; personal or family history of inflammatory bowel disease. She denies ever having similar symptoms and has never had a colonoscopy. Review of Systems Review of Systems: All systems reviewed & are unremarkable except as noted in HPI and below Exam Narrative: General: No acute distress.? Well-developed and well-groomed?adult female lying in bed. Mental Status/Psych: Awake, alert and oriented x4 with clear speech. Neutral mood and affect. Pleasant and cooperative. Skin: Skin fair, warm, dry and intact without rashes or lesions. No open wounds. Good turgor.? HEENT: Normocephalic. Sclera is non-icteric. Pupils equal and round. Grossly normal hearing. Oral mucosa moist. Tongue midline. Oropharynx within normal limits. Neck: Supple. Heart: S1 and S2 regular rate and rhythm. No murmurs, gallops, or rubs auscultated. Chest: Respirations even and unlabored. Lung sounds are clear to auscultation in all lobes bilaterally without wheezes, rhonchi, or rales. Abdomen: Soft, round and non-tender to palpation.? Bowel sounds present in all 4 quadrants. No guarding. Extremities:? Grossly normal ROM all extremities. No edema, erythema or calf tenderness. Radial and dorsalis pedis pulses +2 bilaterally. Neurological: No focal deficits. Cranial nerves 2-12 grossly intact. Objective Data Vital Signs Vital Signs: Vital Signs - 24 hr 05/31/22 17:29 05/31/22 19:26 05/31/22 19:36 Temperature 99.5 F Pulse Rate 73 62 64 Respiratory Rate 14 13 17 Blood Pressure 104/67 Pulse Oximetry 100 Oxygen Delivery 05/31/22 19:46 05/31/22 20:04 05/31/22 20:22 Temperature Pulse Rate 63 60 61 Respiratory Rate 14 16 19 Blood Pressure 144/84 H Pulse Oximetry 99 Oxygen Delivery 05/31/22 21:12 05/31/22 22:10 05/31/22 23:16 Temperature
--- NOTE | 2022-06-01 08:26 | WPDGICN ---
Assessment and Plan Assessment and plan (1) Acute diarrhea: Code(s): R19.7 - Diarrhea, unspecified Status: Acute Assessment and Plan: patient was diarrhea. Began 3 or 4 days ago. Likely related to an infectious etiology. Plan for stool cultures. IV rehydration. Empiric antibiotics including Flagyl and Cipro were encouraged this time. Advance diet as tolerated. Would recommend completing a course of antibiotics pending results of cultures. (2) Transaminitis: Code(s): R74.01 - Elevation of levels of liver transaminase levels Status: Acute Assessment and Plan: Patient noted to have elevated serum transaminases. Likely related to current infectious process. This could be viral or bacterial. Hepatitis serologies are initially negative. Would continue supportive care. Follow up LFTs are suggested after discharge to ensure complete resolution. (3) Acute dehydration: Code(s): E86.0 - Dehydration Status: Acute Assessment and Plan: Patient appeared to be somewhat dehydrated with electrolyte imbalance on presenting to the emergency room. IV rehydration may be of significant benefit. Would restart diet increase activity once repleted with IV fluids. GI Consult Note Consult date/time: 06/01/22 08:26 Reason for consult: Diarrhea and elevated transaminases. HPI: Anna Vera is a 47 year old female I have been asked to consult on at the request of the emergency room. Patient reports being in usual state of health until when she began to be nauseated. She developed diarrhea which began Wednesday and has persisted. She went to the emergency room on 2 occasions subsequently admitted to the hospital yesterday. Patient has had rather significant ongoing diarrhea. She denies any bleeding. Stool cultures are pending at this time. Patient does not normally have diarrhea. No one else in the family is ill. She denies any recent travel. Review of Systems Review of Systems: Review of systems noncontributory. [facility] Past Medical History Medical History (Updated 05/31/22 @ 21:06 by Emma Mitchell PA-C) Calcification of right breast on mammography History of hypertension History of hypothyroidism Family History Family History (Updated 05/31/22 @ 22:56 by Josephine Gomez RN) Mother Diabetes mellitus Sepsis Father Heart attack Emphysema of lung Social History Social History (Updated 05/31/22 @ 18:50 by Emma Mitchell PA-C) Smoking packs per day: 1 Smoking cigarettes per day: 20.0 Smoking status: Former smoker Alcohol intake: current Drinks per week: 1 Substance use: never Lack of Transportation: No Lack of Food: Never True Current Housing: I Have Housing Concerned About Future Housing: No Difficulty Paying Gas/Electric Bills: No Difficulty Paying for Meds: No Currently Unemployed: No Education: High School Diploma/GED Difficulty w/ Childcare or Family Care: No Spiritual care concerns: No Meds Home Medications and Allergies Home Medications Medication Instructions Recorded Confirmed Type ondansetron 4 mg disintegrating 4 mg PO Q8H PRN nausea and 05/30/22 05/31/22 Rx tablet vomiting #14 tabs fluoxetine 20 mg capsule 20 mg PO DAILY 05/31/22 05/31/22 History levothyroxine 112 mcg tablet 112 mcg PO DAILY 05/31/22 05/31/22 History lisinopril 30 mg tablet 30 mg PO DAILY 05/31/22 05/31/22 History Allergies Allergy/AdvReac Type Severity Reaction Status Date / Time bupropion [Wellbutrin] Allergy Intermediate Swelling Verified 05/31/22 17:54 of Lip/Tongue/Throat doxycycline Allergy Intermediate Hives Verified 05/31/22 17:54 Vital Signs Vital Signs - 24 hr 05/31/22 17:29 05/31/22 19:26 05/31/22 19:36 Temperature 99.5 F Pulse Rate 73 62 64 Respiratory Rate 14 13 17 Blood Pressure 104/67 Pulse Oximetry 100 Oxygen Delivery
[2022-06-01] MEDS: ENOXAPARIN 40 MG/0.4 ML SYRINGE SUB-Q (09:12)
[2022-06-01] MEDS: metroNIDAZOLE 250 MG TABLET 500 MG PO ×3 (09:12→21:15)
[2022-06-01] MEDS: CIPROFLOXACIN 250 MG TABLET PO ×2 (09:12→21:15)
[2022-06-01] MEDS: POTASSIUM CHLORIDE INJ 40 MEQ in SODIUM CHLORIDE 0.9% IV 500 ML 130 MEQ IVPB (09:13)
[2022-06-01 09:27] LABS: Atypical Lymphocytes Present; Platelet Estimate Adequate (Adequate); Schistocytes None Seen (NORMAL)
[2022-06-01] MEDS: KCL 40 MEQ/D5 1/2NS 1,000 ML 125 ML IV CONT ×2 (14:42→21:18)
[2022-06-02] VITALS: PULSE 56
[2022-06-02 04:00] VITALS: PULSE 48
[2022-06-02 05:21] VITALS: BP 106/57; PULSE 57; RESP 18; TEMP 36.9; O2SAT 99
[2022-06-02] MEDS: metroNIDAZOLE 250 MG TABLET 500 MG PO (05:36)
[2022-06-02] MEDS: KCL 40 MEQ/D5 1/2NS 1,000 ML 125 ML IV CONT (05:36)
[2022-06-02 06:00] LABS: Basophils Percent Auto 0.3 % (0.2-1.2); Eosinophils Absolute Auto 0.2 K/mm3 (0-0.3); Eosinophils Percent Auto 2.4 % (0-4.4); Hematocrit 37.8 % (37.0-47.0); Hemoglobin 12.9 g/dL (12.0-15.0); Immature Granulocyte Absolute 0.02 K/mm3 (0.00-0.031); Immature Granulocyte Percent A 0.3 % (0-0.5); Lymphocytes Absolute Auto 3.76 K/mm3 (0.9-3.2); Mean Corpuscular HGB Conc 34.1 g/dl (32-36); Mean Corpuscular Hemoglobin 30.6 pg (26-34); Mean Corpuscular Volume 89.6 fl (80-100); Mean Platelet Volume 10.3 fl (7.4-10.4); Monocytes Absolute Auto 0.4 K/mm3 (0.1-0.6); Monocytes Percent Auto 5.2 % (2.6-8.5); Neutrophils Absolute Auto 2.8 K/mm3 (1.3-6.7); Neutrophils Percent Auto 38.8 % (45.5-73.1); Platelet Count Result 287 k/mm3 (150-375); Red Blood Count 4.22 M/mm3 (4.2-5.4); Red Cell Distribution Width 12.4 % (11.5-14.5); White Blood Count 7.1 K/mm3 (4.5-10.0)
[2022-06-02 06:13] LABS: Alanine Aminotransferase 282 U/L (6-35); Albumin Level 3.5 g/dL (3.5-5.1); Alkaline Phosphatase 38 U/L (38-126); Anion Gap 6 mmol/L (8-16); Aspartate Amino Transferase 84 U/L (14-36); Bilirubin,Total 0.2 mg/dL (0.2-1.3); Blood Urea Nitrogen 7 mg/dL (7-17); Calcium 8.1 mg/dL (8.4-10.2); Carbon Dioxide 25 mmol/L (22-30); Chloride 106 mmol/L (98-107); Estimated CRCL calculation 111 ml/min; Estimated Glomerular Filt Rate > 60; Glucose 107 mg/dL (65-110); Potassium 3.9 mmol/L (3.4-5.0); Sodium 137 mmol/L (137-145)
[2022-06-02 08:00] VITALS: PULSE 50
[2022-06-02] MEDS: CIPROFLOXACIN 250 MG TABLET PO (09:10)
--- NOTE | 2022-06-02 09:43 | WPDGIPROGNO ---
Progress Note: A&P Assessment and Plan (1) Acute diarrhea: Code(s): R19.7 - Diarrhea, unspecified Status: Acute Assessment and Plan: Diarrhea resolving. Suspect she had infectious diarrhea. He etiology unclear as cultures are negative today. Recommend 7-10 day course of Cipro and Flagyl. She can be discharged. Follow-up with primary care service. (2) Transaminitis: Code(s): R74.01 - Elevation of levels of liver transaminase levels Status: Acute Assessment and Plan: LFTs are beginning to improve. Likely related to her infectious process. Recommend follow-up LFTs 1 week after discharge. No additional workup if these resolve on their own. Subjective Date/time seen: 06/02/22 09:43 Patient alert comfortable this morning. Feels much better. No additional significant diarrhea noted. Now on oral antibiotics empirically. Review of Systems Review of Systems: Review of systems noncontributory. Exam Narrative: Physical exam reveals patient to be alert. Vital signs stable. HEENT exam reveals no icterus. Lungs are clear to auscultation and percussion. Heart without murmur. Abdomen bowel sounds present soft nontender. Objective Data Vital Signs Vital Signs: Vital Signs - 24 hr 06/01/22 12:00 06/01/22 14:00 06/01/22 16:00 Temperature 98.7 F Pulse Rate 60 61 72 Respiratory Rate 16 Blood Pressure 110/55 L Pulse Oximetry 98 Oxygen Delivery 06/01/22 21:20 06/01/22 20:00 06/01/22 20:00 Temperature 98.2 F Pulse Rate 66 56 L Respiratory Rate 18 Blood Pressure 104/61 Pulse Oximetry 98 Oxygen Delivery Room Air 06/02/22 00:00 06/02/22 04:00 06/02/22 05:21 Temperature 98.4 F Pulse Rate 56 L 48 L 57 L Respiratory Rate 18 Blood Pressure 106/57 L Pulse Oximetry 99 Oxygen Delivery 06/02/22 08:00 06/02/22 09:10 Temperature Pulse Rate 50 L Respiratory Rate Blood Pressure Pulse Oximetry Oxygen Delivery Room Air Intake/Output Intake/Output: Intake & Output 05/30/22 05/31/22 06/01/22 06/02/22 23:59 23:59 23:59 23:59 Intake Total 1100 4196 1490 Output Total 2200 500 Balance 1100 1996 990 Meds/Results Medications: Active Medications Generic Name Dose Route Start Last Admin Trade Name Archie PRN Reason Stop Dose Admin Ciprofloxacin 250 mg 06/01/22 09:00 06/02/22 09:10 Ciprofloxacin 250 Mg Tablet PO 250 mg Q12HR DON Administration Enoxaparin Sodium 40 mg 06/01/22 09:00 06/02/22 09:12 Enoxaparin 40 Mg/0.4 Ml Syringe SUB-Q Not Given DAILY DON Potassium Chloride/Dextrose/Sod Cl 1,000 mls @ 125 mls/hr 06/01/22 12:00 06/02/22 05:36 Kcl 40 Meq/D5 1/2ns IV CONT 125 mls/hr .Q8H DON Administration Metronidazole 500 mg 06/01/22 08:00 06/02/22 05:36 Metronidazole 250 Mg Tablet PO 500 mg Q8HR DON Administration Radiology Results: ITS Impressions Abdomen/Pelvis CT 05/31/22 19:25 IMPRESSION: Hepatomegaly with steatosis. Mesenteric lymphadenopathy. Fluid-filled colon as can be seen with diarrheal illness. Bladder wall thickening likely secondary to under distention. Two corpus luteal cysts are present in the right ovary, consider testing. Abdomen Ultrasound 06/01/22 09:08 IMPRESSION: 1: Normal limited abdominal ultrasound. Labs Labs: Laboratory Results - last 24 hr 06/02/22 06/02/22 05:28 05:28 WBC 7.1 RBC 4.22 Hgb 12.9 Hct 37.8 MCV 89.6 MCH 30.6 MCHC 34.1 RDW 12.4 Plt Count 287 MPV 10.3 Immature Gran % (Auto) 0.3 Neut % (Auto) 38.8 L Lymph % (Auto) 53.0 H Miner % (Auto) 5.2 Eos % (Auto) 2.4 Baso % (Auto) 0.3 Lymph # (Auto) 3.76 H Miner # (Auto) 0.4 Eos # (Auto) 0.2 Baso # (Auto) 0.0 Abs Immat Gran (auto) 0.02 Absolute Neuts (auto) 2.8 Absolute Nucleated RBC 0.0 Nucleated RBC % 0.0 Sodium 137 Potassium 3.9 Chloride 106 Carbon Dioxide 25
--- NOTE | 2022-06-02 10:49 | PM.DS ---
DS: Admitting Diagnosis Discharge Date 06/02/22 1049 Admitting Diagnosis Acute diarrheaTransaminitis Acute dehydration Hypokalemia DS: Discharge Diagnosis Discharge Diagnosis (1) Infectious gastroenteritis and colitis: Code(s): A09 - Infectious gastroenteritis and colitis, unspecified Status: Acute Assessment and Plan: Suggested on CT scan. Improved with antibiotics (2) Acute diarrhea: Code(s): R19.7 - Diarrhea, unspecified Status: Acute Assessment and Plan: She presented to the ED with c/o abd pain and diarrhea x [address] abd pelvis showed fluid-filled suggestive of diarrheal illness. Stool studies obtained from 05/30 ED visit negative. negative for hepatitis A and B GI consulted and appreciate recommendations. She was started on Ciprofloxacin PO BID and metronidazole TID, started 06/01 Diet advanced to regular consistency diet with good tolerance. Treated with IV analgesics and antiemetics. (3) Transaminitis: Code(s): R74.01 - Elevation of levels of liver transaminase levels Status: Acute Assessment and Plan: AST/ALT elevated, Tbili and Alk phos within normal limits. Likely secondary to hepatic steatosis noted on CT scan CT abd/pelvis showed normal gallbladder and liver. right upper quadrant normal exam. Hepatitis panel negative. Repeat CMP in 1 week. (4) Hepatic steatosis: Code(s): K76.0 - Fatty (change of) liver, not elsewhere classified Status: Chronic Assessment and Plan: Suggested on CT scan (5) Acute dehydration: Code(s): E86.0 - Dehydration Status: Acute Assessment and Plan: 2/2 volume loss from acute diarrhea. Treated IV fluids (6) Acute hypokalemia: Code(s): E87.6 - Hypokalemia Status: Acute Assessment and Plan: K 2.9 this admission. 2/2 acute diarrhea. She was given 40 mEQ IVPB on admission. 06/01/22 K 3.1 given additional 40 mEQ IVPB x1 and KCl added to maintenance fluids Potassium 3.9 on discharge Monitored on telemetry until hypokalemia resolved- no arrhythmia or ectopy. DS: Summary Hospital Course Reason for hospitalization: Diarrhea Hospital Course: Anna Sanchez is a 47-year-old female with hypertension, hypothyroidism, and depression.? She presented to the emergency room for the second time for evaluation of numerous watery bowel movements in the last 2 days, She denied blood in the stools, changes in stool color, unplanned weight loss, vomiting, abdominal pain, fevers, rigors, or chills, She had been in her usual state of health prior to this with no sick contacts noted. 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 She tested negative for COVID, influenza A/B, and hepatitis-A and B screening? Preliminary workup was significant for potassium of 2.9, WBC count of 15,000,? AST 229, ALT 333. CT of abdomen and pelvis demonstrated Hepatomegaly with steatosis. Mesenteric lymphadenopathy. Fluid-filled colon as can be seen with diarrheal illness. She was admitted to the medical floor and treated with IV fluids and potassium chloride replacement. Gastroenterology was consulted and patient was started on PO ciprofloxacin 500 mg BID and PO metronidazole TID. Her symptoms improved and her diet was advanced. LFTs improved. She was discharged home in stable condition with additional 7 days of antibiotics and repeat CMP in 1 week for monitoring of transaminitis. Status at Discharge Cognitive/behavioral status at discharge: Alert and oriented x4 Functional status at discharge: independent ambulation Overall status at discharge: patient is back to baseline Time Spent with Patient Time attestation: Total time spent providing and/or coordinating discharge services: Time spent: Less than 30 minutes Exam Narrative: General: No acute distress.? Well-developed and well-groomed?adult female lying in bed. Mental Status/Psych: Awake, alert
== END 2022-06-02 11:58 | disposition home or self-care (01) ==
LOC: ANHED 21:06 → ANH2MED 06-01 08:18
PROVIDERS: Nurse Practitioner Family; Physician Assistant; Admitting Provider Internal Medicine; Emergency Provider Emergency Medicine; PCP Family Medicine; Visit Provider Family Medicine
DX: R19.7 Diarrhea, unspecified (principal); R74.01 Elevation of levels of liver transaminase levels; E86.0 Dehydration; E87.6 Hypokalemia; I10 Essential (primary) hypertension; E03.9 Hypothyroidism, unspecified; R71.8 Other abnormality of red blood cells; R11.2 Nausea with vomiting, unspecified; R16.0 Hepatomegaly, not elsewhere classified; K76.0 Fatty (change of) liver, not elsewhere classified; R00.1 Bradycardia, unspecified; R59.1 Generalized enlarged lymph nodes; N83.11 Corpus luteum cyst of right ovary; Z20.822 Contact with and (suspected) exposure to COVID-19; F10.90 Alcohol use, unspecified, uncomplicated; Z32.02 Encounter for pregnancy test, result negative; Z87.891 Personal history of nicotine dependence; Z79.899 Other long term (current) drug therapy
CPT/HCPCS: 36415; 74177; 76705; 80053; 80074; 81001; 81025; 83690; 83735; 85025; 93005; 96361; 96365; 96366; 96372; 96375; 99285; A9270; G0378; J0131; J1650; J3480; J7030; J7040; Q9967

== ENCOUNTER 2022-06-16 08:01 | Outpatient (CLI) | payer OTHER, SELFPAY ==
[2022-06-16 20:14] LABS: Alanine Aminotransferase 50 U/L (6-35); Albumin Level 4.5 g/dL (3.5-5.1); Alkaline Phosphatase 33 U/L (38-126); Aspartate Amino Transferase 27 U/L (14-36); Bilirubin,Total 0.5 mg/dL (0.2-1.3)
[2022-06-16 20:17] LABS: Alanine Aminotransferase 51 U/L (6-35); Albumin Level 4.6 g/dL (3.5-5.1); Alkaline Phosphatase 33 U/L (38-126); Anion Gap 6 mmol/L (8-16); Aspartate Amino Transferase 28 U/L (14-36); Bilirubin,Total 0.6 mg/dL (0.2-1.3); Blood Urea Nitrogen 15 mg/dL (7-17); Calcium 8.8 mg/dL (8.4-10.2); Carbon Dioxide 29 mmol/L (22-30); Chloride 99 mmol/L (98-107); Estimated Glomerular Filt Rate > 60; Glucose 75 mg/dL (65-110); Potassium 4.3 mmol/L (3.4-5.0); Sodium 134 mmol/L (137-145)
[2022-06-16 21:08] LABS: Free T4 Free Thyroxine 1.34 ng/mL (0.78-2.19)
[2022-06-16 21:17] LABS: Total Triiodothyronine (T3) 1.36 NG/ML (0.97-1.69)
== END 2022-06-16 08:02 | disposition home or self-care (01) ==
LOC: ANHASCLAB 08:03
PROVIDERS: Nurse Practitioner Family; PCP Family Medicine; Visit Provider Internal Medicine Gastroenterology
DX: E86.0 Dehydration (principal); R74.01 Elevation of levels of liver transaminase levels; E87.6 Hypokalemia; E03.9 Hypothyroidism, unspecified
CPT/HCPCS: 36415; 80053; 80076; 84436; 84439; 84443; 84480

== ENCOUNTER 2022-07-17 08:42 | Outpatient (CLI) | payer OTHER, SELFPAY ==
[2022-07-17 20:24] LABS: Free T4 Free Thyroxine 1.52 ng/mL (0.78-2.19)
[2022-07-17 20:37] LABS: Thyroid Stimulating Hormone 0.356 uIU/mL (0.465-4.680)
== END 2022-07-17 08:43 | disposition home or self-care (01) ==
LOC: ANHASCLAB 08:44
PROVIDERS: PCP Family Medicine; Visit Provider Family Medicine
DX: E03.9 Hypothyroidism, unspecified (principal)
CPT/HCPCS: 36415; 84436; 84439; 84443; 84480

== ENCOUNTER 2023-03-23 13:29 | Outpatient (CLI) | payer OTHER, SELFPAY ==
--- NOTE | ~2023-03-23 | MM_ITS ---
EXAMINATION: MM screening jose BI w awilda HISTORY: Screening mammogram TECHNIQUE: Craniocaudal and mediolateral oblique 3-D tomosynthesis images were obtained and synthetic 2-D images were generated. CAD analysis was submitted and interpreted. COMPARISON: 08/26/2021 diagnostic bilateral mammogram and Limited bilateral breast ultrasound. BREAST PARENCHYMAL COMPOSITION: There are scattered areas of fibroglandular density. FINDINGS: There are numerous scattered bilateral benign calcifications. There is no evidence of suspi cious mass, calcification, or architectural distortion to suggest malignancy in either breast. There has been no suspicious interval change. IMPRESSION: 1. No mammographic evidence of malignancy. 2. Recommend routine screening mammography in one year. BI-RADS Category 2: Benign finding(s). Reviewed, dictated and finalized at location A.
== END 2023-03-23 13:30 | disposition home or self-care (01) ==
PROVIDERS: PCP Family Medicine; Visit Provider Obstetrics & Gynecology
DX: Z12.31 Encounter for screening mammogram for malignant neoplasm of breast (principal)
CPT/HCPCS: 77063; 77067

== ENCOUNTER 2023-04-08 07:39 | Outpatient (CLI) | payer OTHER, SELFPAY ==
[2023-04-08 19:32] LABS: Alanine Aminotransferase 41 U/L (6-35); Albumin Level 4.5 g/dL (3.5-5.1); Alkaline Phosphatase 32 U/L (38-126); Anion Gap 5 mmol/L (8-16); Aspartate Amino Transferase 44 U/L (14-36); Bilirubin,Total 0.6 mg/dL (0.2-1.3); Blood Urea Nitrogen 23 mg/dL (7-17); Calcium 9.2 mg/dL (8.4-10.2); Carbon Dioxide 32 mmol/L (22-30); Chloride 100 mmol/L (98-107); Cholesterol 174 mg/dL (0-200); Estimated Glomerular Filt Rate > 60; Glucose 79 mg/dL (65-110); HDL Direct 44 mg/dL; Potassium 4.1 mmol/L (3.4-5.0); Sodium 137 mmol/L (137-145); Triglycerides 47 mg/dL (<150)
[2023-04-08 19:44] LABS: LDL Cholesterol Direct 99 mg/dL
[2023-04-08 20:02] LABS: Free T4 Free Thyroxine 1.33 ng/mL (0.78-2.19); Total Triiodothyronine (T3) 0.93 NG/ML (0.97-1.69)
[2023-04-08 22:09] LABS: Hemoglobin A1C 4.9 % (<5.7)
== END 2023-04-08 07:40 | disposition home or self-care (01) ==
LOC: ANHASCLAB 07:41
PROVIDERS: PCP Family Medicine; Visit Provider Family Medicine
DX: E03.9 Hypothyroidism, unspecified (principal); R73.01 Impaired fasting glucose
CPT/HCPCS: 36415; 80053; 80061; 83036; 84439; 84443; 84480

== ENCOUNTER 2023-09-18 09:48 | Outpatient (CLI) | payer OTHER, SELFPAY ==
--- NOTE | ~2023-09-18 | MR_ITS ---
EXAMINATION: MR pelvis wo/w con DATE: 09/18/2023 10:54 INDICATION: Localized swelling, mass and lump, trunk. Left gluteal mass. TECHNIQUE: Magnetic resonance imaging (MRI) of the pelvis was performed without and with 15 mL MultiH ance intravenous contrast. COMPARISON: CT abdomen and pelvis 05/31/2022 FINDINGS: There is an enhancing mass in the left perianal region extending inferolaterally in the subcutaneous fat of the inferior left buttock measuring 8.6 x 2.9 x 2.1 cm. There is a central fluid component in the mass measuring approximately 1 mL. There are no pathologically enlarged lymph nodes. IMPRESSION: 1. Left perianal mass with small fluid component, consistent with an abscess. Reviewed, dictated and finalized at location E.
== END 2023-09-18 09:49 | disposition home or self-care (01) ==
LOC: ANHIMG 09:51
PROVIDERS: PCP Family Medicine; Visit Provider Surgery
DX: R22.2 Localized swelling, mass and lump, trunk (principal)
CPT/HCPCS: 72197; A9577

== ENCOUNTER 2023-09-22 10:17 | Outpatient (CLI) | payer OTHER, SELFPAY ==
[2023-09-22 12:35] LABS: Anion Gap 5 mmol/L (4-12); Blood Urea Nitrogen 18 mg/dL (7-17); Calcium 9.6 mg/dL (8.4-10.2); Carbon Dioxide 31 mmol/L (22-30); Chloride 101 mmol/L (98-107); Estimated Glomerular Filt Rate > 60; Glucose 71 mg/dL (65-110); Potassium 3.9 mmol/L (3.4-5.0); Sodium 137 mmol/L (137-145)
[2023-09-22 12:41] LABS: Prothrombin Time 13.2 Seconds (11.1-14.7)
[2023-09-22 12:42] LABS: Partial Thromboplastin Time 30.3 Seconds (22.3-36.8)
== END 2023-09-22 10:18 | disposition home or self-care (01) ==
LOC: ANHASCLAB 10:20
PROVIDERS: PCP Family Medicine; Visit Provider Anesthesiology
DX: K76.0 Fatty (change of) liver, not elsewhere classified (principal); Z01.818 Encounter for other preprocedural examination
CPT/HCPCS: 36415; 80048; 85610; 85730

== ENCOUNTER 2023-09-23 16:18 | Outpatient (CLI) | payer OTHER, SELFPAY ==
--- NOTE | 2023-09-23 16:26 | ECG_ITS ---
Measurements Intervals [place] Rate: 60 P: 81 ID: 160 QRS: 71 QRSD: 97 T: 74 QT: 396 QTc: 398 Interpretive Statements SINUS RHYTHM VENTRICICULAR BIGEMINY INCOMPLETE RIGHT BUNDLE BRANCH BLOCK ABNORMAL ECG COMPARED TO ECG 05/31/2022 21:40:14 SINUS RHYTHM NOW PRESENT VENTRICULAR BIGEMINY NOW PRESENT INCOMPLETE RIGHT BUNDLE-BRANCH BLOCK NOW PRESENT Electronically Signed On 09-23-2023 16:38:34 CDT by Deondre Doll D.O.
== END 2023-09-23 16:19 | disposition home or self-care (01) ==
LOC: CHSIMG 16:22
PROVIDERS: PCP Family Medicine; Visit Provider Anesthesiology
DX: Z86.79 Personal history of other diseases of the circulatory system (principal); I45.19 Other right bundle-branch block; R94.31 Abnormal electrocardiogram [ECG] [EKG]
CPT/HCPCS: 93005

== ENCOUNTER 2023-09-27 01:09 | Day surgery (SDC) | payer OTHER, SELFPAY ==
[2023-09-22 09:57] VITALS: BMI 29.5
--- NOTE | 2023-09-22 10:03 | PC.NURSE ---
Addendum entered by Rachel Lawrence RN 09/22/23 10:09: PT INSTRUCTED NO FOOD OR DRINK AFTER MIDNIGHT. Original Note: Report to the Outpatient Waiting Room, entrance under the green pavilion located off [facility], at time 0600 on date 09/27/23. Planned Procedure Time: 0730. Time changes happen often and if your time is changed the preop area will call you the afternoon before. - You and your visitor will be asked to self-screen and do not enter if you have any COVID symptoms. - A mask is optional within the hospital at this time. Patients may have clear liquids (water, carbonated beverages, clear teas, apple juice) until 3 hours prior to surgery with a maximum of 20 ounces. - No food from midnight until time of surgery Take the following medications with a SIP of water the morning of surgery: ANTIBIOTICS, FLUOXETINE, LEVOTHYROXINE DO NOT STOP ANY OF YOUR OTHER PRESCRIPTION MEDICATIONS PRIOR TO SURGERY ?EXCEPT THE FOLLOWING Medications to discontinue per physician: N/A Date to take last dose: N/A Please no make-up, nail kyrgyz, hairspray, perfume, deodorant, or body powder the day of surgery. No jewelry (including any body piercings) or valuables the day of surgery, leave them at home. Please take a shower or bath the night before, or the morning of, surgery with an antibacterial soap. Wear comfortable, loose fitting clothing. - Jewelry must be removed prior to entering the operating room. Rings and piercings that are not removed may be cut off. - The hospital will not accept responsibility for valuables. - Please leave all valuables, including medications, at home the day of surgery. If you are going home after surgery, a licensed company tanker truck driver must drive you home. - NO public transportation without another adult if you receive anesthesia. - We recommend that an adult stay with you for 24 hours following discharge. - We also recommend that you do not drive, make important decision, drink alcoholic beverages, or take any drugs that were not prescribed by your health care provider for at least 24 hours after your discharge time. Follow any additional instructions given to you from your surgeon. If you or anyone in your household have experienced Covid symptoms in the past week, please notify your surgeon or the nurse liaison at the phone number below for possible testing. Telephone instructions given to JAYDE GURROLA and asked if any additional questions and then verbalized understanding. Patient advised to call surgeon office or pre surgery nurse liaison [phone] if any additional questions.
[2023-09-27] VITALS (8 sets, daily range): BP systolic 91–154; BP diastolic 35–70; PULSE 48–68; RESP 14–22; TEMP 36.1–36.6; O2SAT 96–99
--- NOTE | 2023-09-27 06:28 | WPDANESEPPF ---
Anes - Initial Pre Proc Eval Procedure: Operation Date: 09/27/23 07:30 Proposed Procedures p Rectal Examination Under Anesthesia, Possible Incision and Drainage Perirectal Abscess, Possible Placement of Seton Drain - Geoffrey Patel DO Date/Time: 09/27/23 06:28 Surgeon: Geoffrey Patel DO Pre Op Diagnosis: Perirectal Abscess Patient Data Age: 48 Gender: F Height: 1.6 m Weight: 76.6 kg Last Vital Signs Temp 36.6 C 09/27/23 06:06 Pulse 68 09/27/23 06:06 Resp 16 09/27/23 06:06 BP 154/67 H 09/27/23 06:06 Pulse Ox 99 09/27/23 06:06 O2 Del Method Room Air 09/27/23 06:06 Allergies Allergy/AdvReac Type Severity Reaction Status Date / Time bupropion [Wellbutrin] Allergy Intermediate Swelling Verified 09/27/23 05:57 of Lip/Tongue/Throat doxycycline Allergy Intermediate Hives Verified 09/27/23 05:57 Home Medications Medication Instructions Recorded Confirmed Type fluoxetine 20 mg capsule 20 mg PO DAILY 05/31/22 09/22/23 History levothyroxine 112 mcg tablet 112 mcg PO DAILY 05/31/22 09/22/23 History lisinopril 30 mg tablet 30 mg PO DAILY 05/31/22 09/22/23 History amoxicillin 875 mg-potassium 1 tablet PO Q12H 2 weeks #28 tabs 09/21/23 09/22/23 Rx clavulanate 125 mg tablet metronidazole 500 mg tablet 500 mg PO Q8H 2 weeks #42 tabs 09/21/23 09/22/23 Rx Patient hx anesthesia problems: none Family hx anesthesia problems: none Results Review: All pre-operative results and documents have been reviewed as part of the pre-operative evaluation. [facility] Past Medical History Medical History (Updated 09/06/23 @ 15:36 by Candy Waldrop) Calcification of right breast on mammography History of hypertension History of hypothyroidism Surgical History Surgical History History of History of endometrial ablation History of hysteroscopy History of incision and drainage Perirectal abscess in 2019 Hx of tonsillectomy Family History Family History Mother Diabetes mellitus Sepsis Father Heart attack Emphysema of lung Social History Social History Smoking packs per day: 1 Smoking cigarettes per day: 20.0 Years smoked: 22 Smoking pack-years: 22.00 Smoking status: Former smoker Tobacco type: cigarettes Smoking end date: 06/28/13 Alcohol intake: current Drinks per week: 1 Alcohol use details: RARE Substance use: never Substance use type: does not use Lack of Transportation: No Lack of Food: Never True Current Housing: I Have Housing Concerned About Future Housing: No Difficulty Paying Gas/Electric Bills: No Difficulty Paying for Meds: No Currently Unemployed: No Education: High School Diploma/GED Difficulty w/ Childcare or Family Care: No Living arrangements: with family Spiritual care concerns: No Anes - Eval Final PreProcedure Day of Procedure 09/27/23 06:28 Patient weight: overweight Heart: regular rate and rhythm Lungs: clear to auscultation Airway: Mallampati scale class II Neurological: alert and oriented Last oral intake: >/= 8 hours ASA classification: III Emergent: no Anesthetic plan: proceed Anesthesia type and monitoring: general LMA and standard monitoring Results Review: All pre-operative results and documents have been reviewed as part of the pre-operative evaluation. Informed Consent: The patient's anesthetic plan and its attendant risks and benefits were discussed with the patient/family/POA. Questions were solicited and answers provided to the satisfaction of the patient/family/POA.
[2023-09-27] MEDS: LACTATED RINGERS 1,000 ML 30 ML IV CONT (06:46)
[2023-09-27] MEDS: ACETAMINOPHEN 500 MG TABLET 1000 MG PO (06:47)
[2023-09-27] MEDS: KETOROLAC 15 MG/ML VIAL (*BKC) IV PUSH (06:49)
--- NOTE | 2023-09-27 07:15 | PM.IMHP ---
H&P: HPI History of Present Illness Date/Time: 09/27/23 07:15 Chief Complaint: rectal swelling,pain Narrative: 48 yo woman presents for rectal exam under anesthesia. She was having rectal pain and swelling. MRI showed probably abscess in the left posterior region. Review of Systems Review of Systems: All systems reviewed & are unremarkable except as noted in HPI and below Constitutional: Constitutional: Denies chills, Denies fever(s), Denies headache(s) and Denies weight loss Eyes: Eyes: Denies change in vision ENT: Denies dizziness, Denies headache(s), Denies neck mass and Denies throat swelling Cardiovascular: Cardiovascular: Denies chest pain, Denies lightheadedness and Denies dyspnea Respiratory: Respiratory: Denies cough, Denies dyspnea and Denies wheezing Gastrointestinal: Gastrointestinal: Denies abdominal pain, Denies change in bowel habits, Denies nausea and Denies vomiting Genitourinary: Genitourinary: Denies hematuria and Denies dysuria Musculoskeletal: Musculoskeletal: Reports as per HPI Integumentary/Breasts: Skin/Breast: Reports as per HPI Neurologic: Denies dizziness and Denies headache(s) Allergic/Immunologic: Allergic/Immunologic: Denies throat swelling and Denies wheezing [facility] Past Medical History Medical History (Updated 09/27/23 @ 07:16 by Geoffrey Patel DO) Calcification of right breast on mammography History of hypertension History of hypothyroidism Surgical History Surgical History History of History of endometrial ablation History of hysteroscopy History of incision and drainage Perirectal abscess in 2019 Hx of tonsillectomy Family History Family History Mother Diabetes mellitus Sepsis Father Heart attack Emphysema of lung Social History Social History Smoking packs per day: 1 Smoking cigarettes per day: 20.0 Years smoked: 22 Smoking pack-years: 22.00 Smoking status: Former smoker Tobacco type: cigarettes Smoking end date: 06/28/13 Alcohol intake: current Drinks per week: 1 Alcohol use details: RARE Substance use: never Substance use type: does not use Lack of Transportation: No Lack of Food: Never True Current Housing: I Have Housing Concerned About Future Housing: No Difficulty Paying Gas/Electric Bills: No Difficulty Paying for Meds: No Currently Unemployed: No Education: High School Diploma/GED Difficulty w/ Childcare or Family Care: No Living arrangements: with family Spiritual care concerns: No Meds Home Medications and Allergies Home Medications Medication Instructions Recorded Confirmed Type fluoxetine 20 mg capsule 20 mg PO DAILY 05/31/22 09/22/23 History levothyroxine 112 mcg tablet 112 mcg PO DAILY 05/31/22 09/22/23 History lisinopril 30 mg tablet 30 mg PO DAILY 05/31/22 09/22/23 History amoxicillin 875 mg-potassium 1 tablet PO Q12H 2 weeks #28 tabs 09/21/23 09/22/23 Rx clavulanate 125 mg tablet metronidazole 500 mg tablet 500 mg PO Q8H 2 weeks #42 tabs 09/21/23 09/22/23 Rx Allergies Allergy/AdvReac Type Severity Reaction Status Date / Time bupropion [Wellbutrin] Allergy Intermediate Swelling Verified 09/27/23 05:57 of Lip/Tongue/Throat doxycycline Allergy Intermediate Hives Verified 09/27/23 05:57 Vital Signs Vital Signs - 24 hr 09/27/23 06:06 Temperature 36.6 C Pulse Rate 68 Respiratory Rate 16 Blood Pressure 154/67 H Pulse Oximetry 99 Oxygen Delivery Room Air Exam Const: General: no acute distress and alert Orientation/consciousness: patient oriented x3 HENMT: Head: normocephalic and atraumatic Ears: hearing grossly normal bilaterally Face/Nose/Sinus: Normal nares present Mouth: Yes Normal oral and palatal mucosa present Eyes: Perior
--- NOTE | 2023-09-27 07:17 | WPDHPUPDATE1 ---
History and Physical Update Update Date/Time: 09/27/23 07:17 History and Physical has been reviewed, including an updated exam of the patient. There are NO changes in the patient's condition. Risks, benefits, and alternatives have been discussed and questions answered. Patient agrees to proceed with procedure.
[2023-09-27] MEDS: ceFAZolin 2 GM/D5W 50 ML 2 GM/50 ML BAG IVPB (07:30)
--- NOTE | 2023-09-27 08:05 | W.PM.PROC2 ---
Procedure Note - Detailed Date of Procedure 09/27/23 Pre-op Diagnosis Perirectal Abscess Post-op Diagnosis Same Procedure Performed rectal exam under anesthesia, incision and drainage of complex perirectal abscess Surgeon Geoffrey Patel, DO Anesthesia General and Local ( 0.5% bupivacaine with epinephrine) Indications This is a 48-year-old woman who presented with perirectal pain and swelling for the past several months. She has had intermittent swelling which then would reduce on its own. Over the past couple weeks she has had more constant pain and swelling. An MRI of her pelvis was performed and this showed findings consistent with a perirectal abscess in the left posterior location. Patient was not showing any external signs of an abscess. Discussions were made with the patient about treatment options and decision was made to proceed with rectal exam under anesthesia with possible incision and drainage of complex perirectal abscess, possible placement of seton drain. Findings Rectal exam under anesthesia was performed. Upon inspecting the anal rectal canal, I did not identify any definite signs of an abscess internally. There was no purulence drainage or significant bulging from within the rectal canal. The patient was found to have fluctuance within the left posterior perirectal region. I made an incision over this area of fullness about 5 cm from the anal verge in the left posterior location. About 2 cm deep to the skin I was able to enter into the abscess cavity and drained about 10-20 mL of cloudy serous purulence drainage. The abscess cavity was probed for any other tracts and loculations were broken up. The wound was then packed with half-inch iodoform gauze. Description of Procedure Procedure as well as risks, benefits, and alternatives were discussed with the patient. Written consent was obtained and placed in chart prior to procedure. Patient was brought back to surgical suite. She was placed supine on operating table. Time-out was done to confirm patient and procedure. She was then intubated by the anesthesia department. She was repositioned into dorsal lithotomy position. Her perirectal region was prepped and draped in sterile fashion using Betadine prep. Digital rectal exam was initially performed and then a medium Hill-Ennis anoscope was inserted in the anal rectal canal was carefully inspected. No internal abnormalities were noted. The anoscope was then removed. I then palpated an area of fluctuance in the left posterior region. 0.5% bupivacaine with epinephrine was infiltrated directly over this region and a 2 cm incision was then made using a 15 blade scalpel directly over this. Electrocautery was used for hemostasis and for dissection through the subcutaneous tissue. I then used a curved hemostat to gently dissect deeper until entered into the abscess cavity. About 10-20 mL of cloudy serous purulence drainage was drained. I then used the curved hemostat to break up any further loculations. Also probed the opening with my finger and did not identify any other significant abnormalities. The abscess did not appear to be communicating to the inside of the rectal canal on careful palpation, but a small microscopic opening could still be present possibly. The abscess cavity was then irrigated with sterile saline. No other significant abnormalities were noted. The wound was then packed with half-inch iodoform gauze. Fluff gauze, ABD pad, and mesh underwear were then applied. The patient was then awakened from anesthesia, extubated, and transferred to recovery. Estimated Blood Loss 5 Packing Yes ( Half-inch iodoform gauze) Complications No immediate complications Condition Stable Disposition Same day [facility] Billing Surgery - Charge Forward: Surgery Billing
[2023-09-27] MEDS: oxyCODONE HCL (*CRX) 5 MG TAB IR PO (09:19)
== END 2023-09-27 10:07 | disposition home or self-care (01) ==
PROVIDERS: PCP Family Medicine; Visit Provider Surgery
PROC: (CPT 46040; principal; 2023-09-27 07:30)
DX: K61.1 Rectal abscess (principal); I10 Essential (primary) hypertension; E03.9 Hypothyroidism, unspecified; Z98.890 Other specified postprocedural states; Z82.49 Family history of ischemic heart disease and other diseases of the circulatory system; Z87.891 Personal history of nicotine dependence
CPT/HCPCS: 46040; A9270; J0690; J1100; J1885; J2250; J2405; J2704; J3010; J7120

== ENCOUNTER 2023-11-17 08:02 | Outpatient (CLI) | payer OTHER, SELFPAY ==
[2023-11-17 20:10] LABS: Alanine Aminotransferase 33 U/L (6-35); Albumin Level 4.8 g/dL (3.5-5.1); Alkaline Phosphatase 36 U/L (38-126); Anion Gap 6 mmol/L (4-12); Aspartate Amino Transferase 58 U/L (14-36); Bilirubin,Total 0.7 mg/dL (0.2-1.3); Blood Urea Nitrogen 20 mg/dL (7-17); Calcium 9.3 mg/dL (8.4-10.2); Carbon Dioxide 29 mmol/L (22-30); Chloride 100 mmol/L (98-107); Cholesterol 196 mg/dL (0-200); Estimated Glomerular Filt Rate > 60; Glucose 79 mg/dL (65-110); HDL Direct 48 mg/dL; Potassium 4.4 mmol/L (3.4-5.0); Sodium 135 mmol/L (137-145); Triglycerides 76 mg/dL (<150)
[2023-11-17 20:22] LABS: LDL Cholesterol Direct 108 mg/dL
[2023-11-17 20:32] LABS: Hemoglobin A1C 4.9 % (<5.7)
[2023-11-17 20:41] LABS: Thyroid Stimulating Hormone 0.963 uIU/mL (0.465-4.680); Total Triiodothyronine (T3) 1.03 NG/ML (0.97-1.69)
== END 2023-11-17 08:03 | disposition home or self-care (01) ==
PROVIDERS: PCP Family Medicine; Visit Provider Physician Assistant
DX: E03.9 Hypothyroidism, unspecified (principal); R73.01 Impaired fasting glucose
CPT/HCPCS: 36415; 80053; 80061; 83036; 84439; 84443; 84480

== ENCOUNTER 2024-02-15 07:54 | Outpatient (CLI) | payer OTHER, SELFPAY ==
[2024-02-15 19:23] LABS: Total Triiodothyronine (T3) 1.08 NG/ML (0.97-1.69)
[2024-02-15 19:35] LABS: Free T4 Free Thyroxine 1.58 ng/mL (0.78-2.19)
== END 2024-02-15 07:55 | disposition home or self-care (01) ==
PROVIDERS: PCP Family Medicine; Visit Provider Physician Assistant
DX: E03.9 Hypothyroidism, unspecified (principal)
CPT/HCPCS: 36415; 84439; 84443; 84480

== ENCOUNTER 2024-03-29 12:16 | Inpatient (IN) | payer OTHER, SELFPAY ==
--- NOTE | ~2024-03-29 | CT_ITS ---
EXAMINATION: CT pelvis w con DATE: 03/29/2024 15:58 INDICATION: Pelvic abscess. TECHNIQUE: Computed tomography (CT) of the pelvis was performed with 100 mL Omnipaque 350 intravenous contrast. Automated exposure control and iterative reconstruction technique were employed. The dose- length product was 498.60 mGy-cm. COMPARISON: CT abdomen and pelvis 05/31/2022 FINDINGS: There are no dilated loops of bowel. The appendix is normal. There are no pathologically en larged lymph nodes. There is no free intraperitoneal fluid. There is a thick-walled tract of fluid in the left buttock extending from the anus and rectum to the skin. The maximum thickness of fluid in t he tract is 8 mm. The tract length is 10 cm. There is severe lower lumbar spondylosis. IMPRESSION: 1. Sinus tract from the anus and rectum to the skin on the left. Reviewed, dictated and finalized at location A.
[2024-03-29 12:24] VITALS: BP 116/48; PULSE 85; RESP 14; TEMP 36.2; O2SAT 98
--- NOTE | 2024-03-29 14:26 | ED.SKABFB ---
HPI - Skin/Abscess/Foreign Bdy General Chief complaint: Skin/Abscess/Foreign Body Stated complaint: perirectal abscess Time Seen by Provider: 03/29/24 14:13 Source: patient Mode of arrival: ambulatory Limitations: no limitations History of Present Illness HPI narrative: This is a 49 year old female that presents to the ER for a williams-rectal abscess. Reports she has had pain for the last week. Reports increasing swelling over the last couple of days. She has been on Augmentin with little relief. She has an appointment with her surgeon, but it is not until Wednesday. She did not think she could wait any longer. Denies fever or drainage. Related Data Home Medications Medication Instructions Recorded Confirmed fluoxetine 20 mg capsule 25 mg PO DAILY 05/31/22 03/29/24 levothyroxine 112 mcg tablet 112 mcg PO DAILY 05/31/22 03/29/24 lisinopril 30 mg tablet 30 mg PO DAILY 05/31/22 03/29/24 Allergies Allergy/AdvReac Type Severity Reaction Status Date / Time bupropion [Wellbutrin] Allergy Intermediate Swelling Verified 03/29/24 18:10 of Lip/Tongue/Throat doxycycline Allergy Intermediate Hives Verified 03/29/24 18:10 Review of Systems Review of Systems: CONSTITUTIONAL: Denies fever SKIN: Reports redness and swelling All systems reviewed & are unremarkable except as noted in HPI and below PMFSH Past Medical History Medical History (Updated 03/29/24 @ 18:19 by Emma Mitchell PA-C) Calcification of right breast on mammography History of hypertension History of hypothyroidism Surgical History Surgical History (Updated 10/11/23 @ 09:49 by SADIQ Dozier) History of History of endometrial ablation History of hysteroscopy History of incision and drainage Perirectal abscess in 2019 09/27/23 rectal exam under anesthesia, incision and drainage of complex perirectal abscess Dr. Jorge Mckenzie of tonsillectomy Family History Family History Mother Diabetes mellitus Sepsis Father Heart attack Emphysema of lung Social History Social History Smoking packs per day: 1 Smoking cigarettes per day: 20.0 Years smoked: 22 Smoking pack-years: 22.00 Smoking status: Former smoker Tobacco type: cigarettes Smoking end date: 07/17/11 Alcohol intake: never Drinks per week: 1 Alcohol use details: RARE Substance use: never Substance use type: does not use Do You Feel Safe in your Home?: Yes Lack of Transportation: No Lack of Food: Never True Current Housing: I Have Housing Concerned About Future Housing: No Difficulty Paying Gas/Electric Bills: No Difficulty Paying for Meds: No Currently Unemployed: No Education: Don't Know Difficulty w/ Childcare or Family Care: No Living arrangements: with family Spiritual care concerns: No Exam Narrative: GENERAL: Well-appearing, well-nourished, and in no acute distress. HEAD: Normocephalic, atraumatic. EYES: EOMI. CHEST: No respiratory distress. HEART: Regular rate EXTREMITIES: Normal range of motion. No edema. SKIN: Warm, dry, no rash. NEURO: No focal deficits. Alert and oriented x3. PSYCH: Normal mood and affect RECTAL: Left buttock with moderate area of erythema and edema just lateral to the rectum with central fluctuance Course Course Emergency Course: Patient updated on workup and agrees with plan of care Consultations Consultation #1: Spoke with Dr. Elizalde about patient and workup. Patient will be admitted for further management with IV antibiotics, NPO at midnight Date: 03/29/24 Vital Signs Vital signs: Vital Signs Temperature 97.2 F L 03/29/24 12:24 Pulse Rate 85 03/29/24 12:24 Respiratory Rate 14 03/29/24 12:24 Blood Pressure 116/48 L 03/29/24 12:24 Pulse Oximetry 98 03/29/24 12:24 Oxygen Delivery Room Air 03/29/24 12:24
[2024-03-29 15:00] VITALS: PULSE 75; RESP 16; O2SAT 96
[2024-03-29 15:00] LABS: BEDSIDEPREGUCG Negative (Negative)
[2024-03-29 15:02] LABS: Basophils Percent Auto 0.3 % (0.2-1.2); Eosinophils Absolute Auto 0.2 K/mm3 (0-0.3); Eosinophils Percent Auto 1.6 % (0-4.4); Hematocrit 41.1 % (37.0-47.0); Immature Granulocyte Absolute 0.04 K/mm3 (0.00-0.031); Immature Granulocyte Percent A 0.3 % (0-0.5); Lymphocytes Absolute Auto 2.98 K/mm3 (0.9-3.2); Lymphocytes Percent Auto 24.5 % (18.3-44.2); Mean Corpuscular HGB Conc 34.1 g/dl (32-36); Mean Corpuscular Hemoglobin 30.8 pg (26-34); Mean Corpuscular Volume 90.5 fl (80-100); Mean Platelet Volume 10.2 fl (7.4-10.4); Monocytes Percent Auto 8.1 % (2.6-8.5); Neutrophils Absolute Auto 7.9 K/mm3 (1.3-6.7); Neutrophils Percent Auto 65.2 % (45.5-73.1); Platelet Count Result 328 k/mm3 (150-375); Red Blood Count 4.54 M/mm3 (4.2-5.4); Red Cell Distribution Width 11.6 % (11.5-14.5); White Blood Count 12.2 K/mm3 (4.5-10.0)
[2024-03-29 15:15] LABS: Anion Gap 7 mmol/L (4-12); Blood Urea Nitrogen 22 mg/dL (7-17); Calcium 9.1 mg/dL (8.4-10.2); Carbon Dioxide 32 mmol/L (22-30); Chloride 98 mmol/L (98-107); Estimated CRCL calculation 72 ml/min; Estimated Glomerular Filt Rate > 60; Glucose 74 mg/dL (65-110); Potassium 3.9 mmol/L (3.4-5.0); Sodium 137 mmol/L (137-145)
[2024-03-29 16:01] LABS: Erythrocyte Sedimentation Rate 24 mm/hr (0-20)
[2024-03-29 17:37] LABS: Lactic Acid Reflex < 0.5 mmol/L (0.7-2.0)
--- NOTE | 2024-03-29 17:43 | PC.NURSE ---
Report attempt x1 for nurse for 327. Nurse to call back fo report.
[2024-03-29] MEDS: PIPERACILLN/TAZ 3.375GM/NS50ML 3.375 GM/50 ML BAG IVPB ×2 (17:48→18:38)
--- NOTE | 2024-03-29 18:03 | PC.NURSE ---
Pt reports swelling and pain with movement to perianal area.
--- NOTE | 2024-03-29 18:09 | ADMGEN ---
This patient, Anna Vera, was admitted to [facility] Surg Room 327-01. Patient/family oriented to hospital policies and general routines including ID bracelet, bed and alarms, visiting hours, pain management, procedures, bathroom and other care routines, personal items, smoking policy, room service/diet, and visiting hours. Information on how to activate the Rapid Response Team has been discussed. Patient/Family are encouraged to report perceived risks to care and to ask questions if they do not understand what they are told or what they should do.
[2024-03-29] MEDS: SODIUM CHLORIDE 0.9% IV 1,000 ML 125 ML IV CONT (18:33)
[2024-03-29] MEDS: IBUPROFEN IV 800 MG/200 ML 800 MG/200 ML BAG 400 MG IVPB (18:34)
[2024-03-29] MEDS: ACETAMINOPHEN 325 MG TABLET 650 MG PO (20:50)
[2024-03-29 22:00] VITALS: BP 95/57; PULSE 98; RESP 18; TEMP 36.4; O2SAT 54
[2024-03-30] VITALS (12 sets, daily range): BP systolic 97–118; BP diastolic 56–75; PULSE 51–82; RESP 12–16; TEMP 36.3–37.2; O2SAT 96–100
[2024-03-30] MEDS: PIPERACILLN/TAZ 3.375GM/NS50ML 3.375 GM/50 ML BAG IVPB ×5 (00:37→23:33)
[2024-03-30] MEDS: SODIUM CHLORIDE 0.9% IV 1,000 ML 125 ML IV CONT (05:25)
[2024-03-30] MEDS: MORPHINE SULFATE (*CRX) 4 MG/ML INJ IV PUSH ×3 (08:07→23:40)
--- NOTE | 2024-03-30 10:19 | PM.IMHP ---
H&P: HPI History of Present Illness Date/Time: 03/30/24 10:19 Chief Complaint: Perirectal pain Narrative: This is a 49-year-old woman known to our service after having an incision and drainage of complex perirectal abscess by Dr. Patel on 09/27/23. She has not had any issues since September up until last week. She noticed mild perirectal pain about 7 days ago. Over the next few days, she developed swelling in the left perirectal region and her pain progressed. It became uncomfortable to sit and she felt pain similar to her last perirectal abscess. She also reports one episode of rectal drainage that was clear/pink drainage coming directly from her rectum about 6 days ago, but other than that no drainage. No fevers or chills. She was started on oral antibiotics by her surgeon a few days ago and has been taking them as prescribed without any improvement, therefore she presented to the ED for evaluation yesterday. Labs showed a WBC count of 12,200. CT scan pelvis showed sinus tract from the anus and rectum to the skin on the left. She was admitted for surgical evaluation. She is seen on the medical floor. This is her 3rd perirectal abscess. She had an I&D in 2019 and September of 2023. Review of Systems Review of Systems: All systems reviewed & are unremarkable except as noted in HPI and below PMFSH Past Medical History Medical History Calcification of right breast on mammography History of hypertension History of hypothyroidism Surgical History Surgical History History of History of endometrial ablation History of hysteroscopy History of incision and drainage Perirectal abscess in 201809/27/23 rectal exam under anesthesia, incision and drainage of complex perirectal abscess Dr. Patel Hx of tonsillectomy Family History Family History Mother Diabetes mellitus Sepsis Father Heart attack Emphysema of lung Social History Social History Smoking packs per day: 1 Smoking cigarettes per day: 20.0 Years smoked: 22 Smoking pack-years: 22.00 Smoking status: Former smoker Tobacco type: cigarettes Smoking end date: 07/17/11 Alcohol intake: never Drinks per week: 1 Alcohol use details: RARE Substance use: never Substance use type: does not use Do You Feel Safe in your Home?: Yes Lack of Transportation: No Lack of Food: Never True Current Housing: I Have Housing Concerned About Future Housing: No Difficulty Paying Gas/Electric Bills: No Difficulty Paying for Meds: No Currently Unemployed: No Education: Don't Know Difficulty w/ Childcare or Family Care: No Living arrangements: with family Spiritual care concerns: No Meds Home Medications and Allergies Home Medications Medication Instructions Recorded Confirmed Type fluoxetine 20 mg capsule 25 mg PO DAILY 05/31/22 03/29/24 History levothyroxine 112 mcg tablet 112 mcg PO DAILY 05/31/22 03/29/24 History lisinopril 30 mg tablet 30 mg PO DAILY 05/31/22 03/29/24 History Allergies Allergy/AdvReac Type Severity Reaction Status Date / Time bupropion [Wellbutrin] Allergy Intermediate Swelling Verified 03/29/24 18:10 of Lip/Tongue/Throat doxycycline Allergy Intermediate Hives Verified 03/29/24 18:10 Vital Signs Vital Signs - 24 hr 03/29/24 12:24 03/29/24 15:00 03/29/24 22:00 Temperature 97.2 F L 97.6 F Pulse Rate 85 75 98 Respiratory Rate 14 16 18 Blood Pressure 116/48 L 95/57 L Pulse Oximetry 98 96 54 L Oxygen Delivery Room Air 03/30/24 06:00 03/30/24 08:00 Temperature 97.4 F L Pulse Rate 51 L Respiratory Rate 16 Blood Pressure 99/60 L Pulse Oximetry 100 Oxygen Delivery Room Air Exam Const: General: comfortable and no acute
[2024-03-30] MEDS: FLUoxetine HCL 20 MG CAPSULE PO (11:10)
[2024-03-30] MEDS: LEVOTHYROXINE SODIUM 112 MCG TABLET PO (11:10)
--- NOTE | 2024-03-30 13:53 | WPDHPUPDATE1 ---
History and Physical Update Update Date/Time: 03/30/24 13:53 History and Physical has been reviewed, including an updated exam of the patient. There are NO changes in the patient's condition. Risks, benefits, and alternatives have been discussed and questions answered. Patient agrees to proceed with procedure.
--- NOTE | 2024-03-30 14:53 | WPDANESEPPF ---
Anes - Initial Pre Proc Eval Procedure: Operation Date: 03/30/24 16:00 Proposed Procedures p Incision and Drainage Tami-Rectal Abscess - Geoffrey Patel DO Date/Time: 03/30/24 14:53 Surgeon: Geoffrey Patel DO Pre Op Diagnosis: perirectal abscess Patient Data Age: 49 Gender: F Height: 1.6 m Weight: 77 kg Last Vital Signs Temp 97.4 F L 03/30/24 06:00 Pulse 51 L 03/30/24 06:00 Resp 16 03/30/24 06:00 BP 99/60 L 03/30/24 06:00 Pulse Ox 100 03/30/24 06:00 O2 Del Method Room Air 03/30/24 08:00 Allergies Allergy/AdvReac Type Severity Reaction Status Date / Time bupropion [Wellbutrin] Allergy Intermediate Swelling Verified 03/29/24 18:10 of Lip/Tongue/Throat doxycycline Allergy Intermediate Hives Verified 03/29/24 18:10 Home Medications Medication Instructions Recorded Confirmed Type fluoxetine 20 mg capsule 25 mg PO DAILY 05/31/22 03/29/24 History levothyroxine 112 mcg tablet 112 mcg PO DAILY 05/31/22 03/29/24 History lisinopril 30 mg tablet 30 mg PO DAILY 05/31/22 03/29/24 History Laboratory Tests 03/29/24 03/29/24 03/29/24 14:54 14:59 17:14 WBC 12.2 H K/mm3 (4.5-10.0) RBC 4.54 M/mm3 (4.2-5.4) Hgb 14.0 g/dL (12.0-15.0) Hct 41.1 % (37.0-47.0) MCV 90.5 fl (80-100) MCH 30.8 pg (26-34) MCHC 34.1 g/dl (32-36) RDW 11.6 % (11.5-14.5) Plt Count 328 k/mm3 (150-375) MPV 10.2 fl (7.4-10.4) Immature Gran % (Auto) 0.3 % (0-0.5) Neut % (Auto) 65.2 % (45.5-73.1) Lymph % (Auto) 24.5 % (18.3-44.2) Woodson % (Auto) 8.1 % (2.6-8.5) Eos % (Auto) 1.6 % (0-4.4) Baso % (Auto) 0.3 % (0.2-1.2) Lymph # (Auto) 2.98 K/mm3 (0.9-3.2) Woodson # (Auto) 1.0 H K/mm3 (0.1-0.6) Eos # (Auto) 0.2 K/mm3 (0-0.3) Baso # (Auto) 0.0 K/mm3 (0.0-0.1) Abs Immat Gran (auto) 0.04 H K/mm3 (0.00-0.031) Absolute Neuts (auto) 7.9 H K/mm3 (1.3-6.7) Absolute Nucleated RBC 0.000 K/mm3 (0.0-0.012) Nucleated RBC % 0.0 % (0.0-0.2) ESR 24 H mm/hr (0-20) Sodium 137 mmol/L (137-145) Potassium 3.9 mmol/L (3.4-5.0) Chloride 98 mmol/L (98-107) Carbon Dioxide 32 H mmol/L (22-30) Anion Gap 7 mmol/L (4-12) BUN 22 H mg/dL (7-17) Creatinine 0.80 mg/dL (0.7-1.0) Estim Creat Clear Calc 72 ml/min Estimated GFR > 60 (59 - ) Glucose 74 mg/dL (65-110) Lactic Acid < 0.5 L mmol/L (0.7-2.0) Calcium 9.1 mg/dL (8.4-10.2) C-Reactive Protein 2.0 H mg/dL (<1.0) POC Urine HCG, Qual Negative (Negative) Patient hx anesthesia problems: none Family hx anesthesia problems: none Results Review: All pre-operative results and documents have been reviewed as part of the pre-operative evaluation. [facility] [place] Past Medical History Medical History Calcification of right breast on mammography History of hypertension History of hypothyroidism Surgical History Surgical History History of History of endometrial ablation History of hysteroscopy History of incision and drainage Perirectal abscess in 2019 09/27/23 rectal exam under anesthesia, incision and drainage of complex perirectal abscess Dr. Patel Hx of tonsillectomy Family History Family History Mother Diabetes mellitus Sepsis Father Heart attack Emphysema of lung Social History Social History Smoking packs per day: 1 Smoking cigarettes per day:
[2024-03-30] MEDS: LACTATED RINGERS 1,000 ML 30 ML IV CONT (15:00)
[2024-03-30] MEDS: BUPIVACAINE/EPINEPHRINE 0.5% 10 ML VIAL 30 ML INFILTRATE (15:48)
--- NOTE | 2024-03-30 16:24 | W.PM.PROC2 ---
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 Rectal exam under anesthesia 2. Incision and drainage of complicated perirectal abscess Surgeon Geoffrey Patel, DO Anesthesia General (LMA) and Local (0.5% bupivacaine with epinephrine) Indications This is a 49-year-old woman who presented with a recurrent perirectal abscess. She had undergone incision and drainage of a perirectal abscess 6 months ago. She had healed well for a period of time and had no complaints of drainage or open wound. Over the past 5 days she has noticed increasing swelling, pain, and redness to the same region and left posterior perirectal area. She presented to the emergency department yesterday with worsening pain but was not experiencing any drainage. A CT of her pelvis showed a recurrent abscess with suspected fistulous communication to the rectum/anus. She was admitted and placed on broad-spectrum IV antibiotics. Discussions were made with the patient about treatment option and decision was made to proceed with rectal exam under anesthesia, incision and drainage of perirectal abscess, possible placement of seton drain. Findings A large left posterior perirectal abscess was identified about 4 cm from the anal verge. This appeared to track about 6 cm deep along the side of the rectum. There did not appear to be any internal opening it is the left posterior or lateral regions, but there was a small possible fistulous opening along the posterior midline. I attempted to probe the abscess cavity with a lacrimal probe but the tract was tracking too deep to follow all the way back towards the posterior midline anus. I could not clearly identify the fistula track and this appeared to be likely going suprasphincteric. I placed a 18 [place] Mallinckrodt drain within the abscess cavity and secured to this to the skin with 3-0 nylon suture. Description of Procedure Procedure as well as risks, benefits, and alternatives were discussed with the patient. Written consent was obtained and placed in chart prior to procedure. Patient was brought back to surgical suite. She was placed supine on operating table. Time-out was done to confirm patient and procedure. She was then placed under general anesthesia with an LMA by the anesthesia department. She was then repositioned into dorsal lithotomy position in [facility]. Her perirectal area was prepped and draped in sterile fashion using Betadine prep. The left posterior perirectal region was inspected. There appeared to be an area of fluctuance about 4 cm away from the anal verge. This area was anesthetized with 0.5% bupivacaine with epinephrine. A 2 cm cruciate incision was then made using a 15 blade scalpel. An immediate gush of purulence fluid was drained. I then advanced the suction along the abscess cavity. I then used my finger to break up any loculations. The cavity was then irrigated with sterile saline. No further purulence fluid or loculations were identified. I then performed a digital rectal exam and inserted a Burkburnett-Ennis anoscope. The anal rectal canal was carefully inspected. There appeared to be firm mesorectal tissue along the left posterior rectum but did not appear to be any wound openings in this location. Along the dentate line in the posterior midline, there did appear to be a small sinus tract. I advanced a lacrimal probe through the abscess opening on the perianal skin and tried advancing this along the abscess cavity to identify the fistula. This appeared to be tracking too deep to adequately track all the way to the internal opening. I then also tried advancing the probe from the internal opening in the posterior midline of the anal canal and this was tracked for about 2-3 cm but then I could not identify any further tracking. I then removed the la
[2024-03-30] MEDS: MORPHINE SULFATE (*CRX) 2 MG/ML INJ IV PUSH (20:47)
[2024-03-31] MEDS: HYDROcodone/acetaminophen (*CRX) 10-325 MG TABLET 1 TAB PO ×3 (03:03→12:09)
[2024-03-31 03:04] VITALS: BP 111/68; PULSE 66; RESP 14; TEMP 36.4; O2SAT 98
[2024-03-31] MEDS: LEVOTHYROXINE SODIUM 112 MCG TABLET PO (05:42)
[2024-03-31] MEDS: PIPERACILLN/TAZ 3.375GM/NS50ML 3.375 GM/50 ML BAG IVPB ×2 (05:42→12:11)
[2024-03-31 06:45] LABS: Hematocrit 37.4 % (37.0-47.0); Hemoglobin 12.6 g/dL (12.0-15.0); Mean Corpuscular HGB Conc 33.7 g/dl (32-36); Mean Corpuscular Hemoglobin 30.5 pg (26-34); Mean Corpuscular Volume 90.6 fl (80-100); Mean Platelet Volume 10.5 fl (7.4-10.4); Platelet Count Result 312 k/mm3 (150-375); Red Blood Count 4.13 M/mm3 (4.2-5.4); Red Cell Distribution Width 11.4 % (11.5-14.5); White Blood Count 15.2 K/mm3 (4.5-10.0)
[2024-03-31 06:59] LABS: Anion Gap 3 mmol/L (4-12); Blood Urea Nitrogen 13 mg/dL (7-17); Calcium 8.6 mg/dL (8.4-10.2); Carbon Dioxide 31 mmol/L (22-30); Chloride 100 mmol/L (98-107); Estimated CRCL calculation 94 ml/min; Estimated Glomerular Filt Rate > 60; Glucose 130 mg/dL (65-110); Sodium 134 mmol/L (137-145)
[2024-03-31 07:04] VITALS: BP 115/68; PULSE 65; RESP 18; TEMP 36.7; O2SAT 100
[2024-03-31] MEDS: polyethylene glycoL 3350 17 GM POWD.PACK PO (07:53)
[2024-03-31] MEDS: FLUoxetine HCL 20 MG CAPSULE PO (07:53)
--- NOTE | 2024-03-31 10:03 | WPDANESPN ---
Anes - Prog Note Post-Op Date/Time: 03/31/24 10:03 Cardiovascular status: normal Respiratory status: normal Airway patency: baseline Mental status: baseline Post-Op hydration status: normal Vital Signs: Last Vital Signs Temp 36.7 C 03/31/24 07:04 Pulse 65 03/31/24 07:04 Resp 18 03/31/24 07:04 BP 115/68 03/31/24 07:04 Pulse Ox 100 03/31/24 07:04 O2 Del Method Room Air 03/30/24 20:00 O2 Flow Rate 8 03/30/24 16:40 Pain Score (VAS): 09/04 I/O: Intake & Output 03/30/24 03/31/24 03/31/24 23:59 07:59 15:59 Intake Total 400 50 240 Balance 400 50 240 Laboratory Tests 03/31/24 06:09 03/31/24 06:09 03/31/24 06:09 WBC 15.2 H RBC 4.13 L Hgb 12.6 Hct 37.4 MCV 90.6 MCH 30.5 MCHC 33.7 RDW 11.4 L Plt Count 312 MPV 10.5 H Sodium 134 L Potassium 4.0 Chloride 100 Carbon Dioxide 31 H Anion Gap 3 L BUN 13 D Creatinine 0.60 L Estim Creat Clear Calc 94 Estimated GFR > 60 Glucose 130 H Calcium 8.6 Microbiology 03/29/24 17:14 Blood Blood Culture - Preliminary 03/29/24 17:14 Blood Blood Culture - Preliminary Post-procedural complaints: none Patient Feedback: Patient satisfied with anesthetic care.
[2024-03-31 11:04] VITALS: BP 106/63; PULSE 72; RESP 18; TEMP 36.3; O2SAT 99
--- NOTE | 2024-03-31 13:18 | PM.DS ---
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 She has a history of perirectal abscess 6 months ago and underwent incision and drainage. She healed well from this but then for the past several days she has noticed increasing swelling and pain the same region as the prior abscess. In the emergency department she was found to have an elevated white blood count and CT of her pelvis showed evidence of a perirectal abscess and possible fistula. She was admitted and started on broad-spectrum IV antibiotics she underwent incision and drainage and. She was taken for incision and drainage perirectal abscess on 03/30/2024. A Mallinckrodt drain was placed at the time of surgery and she was returned to the surgical floor postoperatively. Her diet and activity were advanced as tolerated. On postop day 1 she was still having some pain in the area of the abscess but was having minimal blood tinge drainage. She remained hemodynamically stable. She was discharged on 03/31/2024. Status at Discharge Functional status at discharge: independent ambulation Overall status at discharge: patient is progressing back to baseline Time Spent with Patient Time attestation: Total time spent providing and/or coordinating discharge services: Time spent: Less than 30 minutes Exam Const: General: comfortable and no acute distress Resp: Effort & Inspection: normal respiratory effort Auscultation: clear to auscultation bilaterally Cardio: Rate: regular rate Rhythm: regular rhythm Heart sounds: S1 normal heart sound present and S2 normal heart sound present GI: Inspection: normal to inspection Rectal Exam: buttock abscess (Left posterior, status post I and D) and other (Mallinckrodt drain in place. Minimal serosanguineous drainage.) DS: Data Data Completed and Pending Labs on day of discharge: Labs from last 24 hours 03/31/24 06:09 WBC 15.2 H RBC 4.13 L Hgb 12.6 Hct 37.4 MCV 90.6 MCH 30.5 MCHC 33.7 RDW 11.4 L Plt Count 312 MPV 10.5 H Sodium 134 L Potassium 4.0 Chloride 100 Carbon Dioxide 31 H Anion Gap 3 L BUN 13 D Creatinine 0.60 L Estim Creat Clear Calc 94 Estimated GFR > 60 Glucose 130 H Calcium 8.6 Preliminary micro results at discharge 03/29/24 17:14 Blood Culture - Preliminary Blood 03/29/24 17:14 Blood Culture - Preliminary Blood Imaging Radiologist's impression: ITS Impressions Pelvis CT 03/29/24 16:13 IMPRESSION: 1. Sinus tract from the anus and rectum to the skin on the left. Discharge Plan Discharge Attending physician on discharge: Geoffrey Patel Discharging Clinician: Geoffrey Patel Patient Disposition: Home, Self-Care Activity: other - see discharge instructions Diet: regular Wound Care Instructions: other - see discharge instructions Discharge Instructions: Postoperative care May shower, no bathing or soaking until wound is completely healed Change gauze daily until drainage stops May ambulate ad anna, no heavy lifting for 2 weeks Call office for increasing pain, worsening drainage, or other problems with incision Office will call to schedule appointment for drain removal next week Continue antibiotics that were prescribed earlier in the week Patient Instructions: Antibiotic Form Stand Alone Forms: General Discharge Information Follow-up/Referrals: Geoffrey Patel DO [Physician] - 1 Week Discharge Medications: New hydrocodone-acetamin
== END 2024-03-31 14:30 | disposition home or self-care (01) | DRG 346 ==
LOC: ANHED 14:45 → ANH3MEDSUR 17:37
PROVIDERS: Admitting Provider Surgery; Emergency Provider Physician Assistant; PCP Family Medicine; Visit Provider Surgery
PROC: 0D9P0ZZ Drainage of Rectum, Open Approach (ICD-10-PCS; CPT 46040; principal; 2024-03-30 16:00)
DX: K61.1 Rectal abscess (principal); I10 Essential (primary) hypertension; E03.9 Hypothyroidism, unspecified; Z87.891 Personal history of nicotine dependence
CPT/HCPCS: 36415; 72193; 80048; 81025; 83605; 85025; 85027; 85652; 86140; 87040; 96361; 96365; 96367; 96375; 96376; 99285; A9270; C1729; G0378; J1100; J1741; J2003; J2250; J2270; J2405; J2543; J2704; J3010; J7030; J7120; Q9967

== ENCOUNTER 2024-04-28 09:15 | Outpatient (CLI) | payer OTHER, SELFPAY ==
[2024-04-28 18:01] LABS: Add Urine Microscopic? NO; Appearance Urine Clear (Clear); Bilirubin Urine Negative (Negative); Blood Urine Negative (Negative); Color Urine Yellow (Yellow); Glucose Urine UA Negative (Negative); Ketones Urine Negative (Negative); Leukocyte Esterase Ur Negative LEU/UL (Negative); Nitrate Urine Negative (Negative); Protein Urine Negative (Negative); Specific Grav Ur 1.009 (1.001-1.035); Urobilinogen Urine 0.2 mg/dL (<2.0)
== END 2024-04-28 09:16 | disposition home or self-care (01) ==
PROVIDERS: PCP Family Medicine; Visit Provider Physician Assistant
DX: R30.0 Dysuria (principal)
CPT/HCPCS: 81003; 87086

== ENCOUNTER 2024-05-15 08:05 | Outpatient (CLI) | payer OTHER, SELFPAY ==
[2024-05-15 20:00] LABS: Basophils Percent Auto 0.6 % (0.2-1.2); Eosinophils Absolute Auto 0.1 K/mm3 (0-0.3); Eosinophils Percent Auto 2.1 % (0-4.4); Hematocrit 45.8 % (37.0-47.0); Hemoglobin 15.1 g/dL (12.0-15.0); Immature Granulocyte Absolute 0.02 K/mm3 (0.00-0.031); Immature Granulocyte Percent A 0.3 % (0-0.5); Lymphocytes Absolute Auto 2.84 K/mm3 (0.9-3.2); Lymphocytes Percent Auto 43.1 % (18.3-44.2); Mean Corpuscular Volume 91.1 fl (80-100); Mean Platelet Volume 11.5 fl (7.4-10.4); Monocytes Absolute Auto 0.4 K/mm3 (0.1-0.6); Monocytes Percent Auto 6.4 % (2.6-8.5); Neutrophils Absolute Auto 3.1 K/mm3 (1.3-6.7); Neutrophils Percent Auto 47.5 % (45.5-73.1); Platelet Count Result 330 k/mm3 (150-375); Red Blood Count 5.03 M/mm3 (4.2-5.4); Red Cell Distribution Width 11.6 % (11.5-14.5); White Blood Count 6.6 K/mm3 (4.5-10.0)
[2024-05-15 23:51] LABS: Free T4 Free Thyroxine 1.77 ng/mL (0.78-2.19)
[2024-05-16 01:11] LABS: Alanine Aminotransferase 36 U/L (6-35); Albumin Level 4.6 g/dL (3.5-5.1); Alkaline Phosphatase 40 U/L (38-126); Anion Gap 7 mmol/L (4-12); Aspartate Amino Transferase 37 U/L (14-36); Bilirubin,Total 0.4 mg/dL (0.2-1.3); Blood Urea Nitrogen 19 mg/dL (7-17); Calcium 9.8 mg/dL (8.4-10.2); Carbon Dioxide 31 mmol/L (22-30); Chloride 98 mmol/L (98-107); Cholesterol 194 mg/dL (0-200); Estimated Glomerular Filt Rate > 60; Glucose 76 mg/dL (65-110); HDL Direct 59 mg/dL; Potassium 4.9 mmol/L (3.4-5.0); Sodium 136 mmol/L (137-145); Triglycerides 58 mg/dL (<150)
[2024-05-16 01:20] LABS: LDL Cholesterol Direct 97 mg/dL
[2024-05-16 01:39] LABS: Thyroid Stimulating Hormone 0.201 uIU/mL (0.465-4.680); Total Triiodothyronine (T3) 1.13 NG/ML (0.97-1.69)
== END 2024-05-15 08:06 | disposition home or self-care (01) ==
PROVIDERS: PCP Family Medicine; Visit Provider Physician Assistant
DX: E03.9 Hypothyroidism, unspecified (principal); E78.5 Hyperlipidemia, unspecified; I10 Essential (primary) hypertension
CPT/HCPCS: 36415; 80053; 80061; 84439; 84443; 84480; 85025

== ENCOUNTER 2024-10-19 12:44 | Outpatient (CLI) | payer OTHER, SELFPAY ==
--- NOTE | ~2024-10-19 | XR_ITS ---
Left foot Technique: AP, oblique, and lateral views were obtained. Clinical History: Lump on lateral aspect of foot Findings: No acute fracture or dislocation is seen. Osseous alignment is anatomic. Joint spaces are p reserved without erosive or degenerative change. Soft tissues are unremarkable. Impression: Unremarkable left foot radiographs. Reviewed, dictated and finalized at [facility]. Impression: Unremarkable left foot radiographs.
--- OUTSIDE RECORDS SUMMARY | 2024-10-19 13:42 | XMS_ITS | Continuity of Care Document ---
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 [address], [place], [address], [place]. tel:[phone] Family History Family Member Type Diagnosis Age At Onset No Information Payers Payer name Insurance type Covered constitution party ID Authoriza tion(s) No Information Social [...]
--- OUTSIDE RECORDS SUMMARY | 2024-10-19 13:42 | XMS_ITS | CONTINUITY OF CARE DOCUMENT ---
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 Jorge Agrawal RN OBESITY active Greg Price MD TOBACCO ABUSE active ? Greg Price MD ENCOUNTERS Date Type Provider Location Encounter Diagnosis - In-person encounter Office Visit Greg Price MD [place] [facility] - In-person encounter Office Visit Greg Price MD [place] [facility] - In-person encounter Office Visit Greg Price MD [place] [facility] - In-person encounter Office Visit Greg Price MD [place] [facility] - In-person encounter Office Visit Greg Price MD [place] [facility] TOBACCO ABUSE - In-person encounter Office Visit Greg Price MD [place] [facility] SVT-12/04 NUC EF 72OBESITY VITAL SIGNS Date Observation Value Provider blood pressure, diastolic 74 mm[Hg] Sergey Agrawal RN blood pressure, systolic 113 mm[Hg] Jorge Agrawal RN pulse rate 75 /min Jorge Agrawal RN oxygen saturation, oximetry 98 % Jorge Agrawal RN respiratory rate E&M 16 /min Jorge pierce RN Body Mass Index (Ratio) 30.80 kg/m2 Jorge Nghia GEE weight E&M 178.8 [lb_av] Jorge Agrawal RN height E&M 64 [in_i] Jorge Agrawal RN blood pressure, diastolic 84 mm[Hg] Sergey Agrawal RN blood pressure, systolic 134 mm[Hg] Jorge Agrawal RN pulse rate 72 /min Jorge Agrawal RN oxygen saturation, oximetry 100 % Jorge Agrawal RN respiratory rate E&M 14 /min Jorge pierce RN weight E&M 172 [lb_av] Jorge Agrawal RN oxygen saturation, oximetry 99 % Latrice York blood pressure, diastolic 78 mm[Hg] Pio Jewell blood pressure, systolic 140 mm[Hg] Pat sy York pulse rate 61 /min Latrice York respiratory rate E&M 16 /min Latrice Kelby de anda weight E&M 175 [lb_av] Latrice York blood pressure, diastolic 85 mm[Hg] Sergey Agrawal RN blood pressure, systolic 132 mm[Hg] Jorge Agrawal RN pulse rate 72 /min Jorge Agrawal RN oxygen saturation, oximetry 97 % Jorge Agrawal RN respiratory rate E&M 18 /min Jorge pierce RN weight E&M 189 [lb_av] Jorge Agrawal RN blood pressure, diastolic 81 mm[Hg] Keon Kaba blood pressure, systolic 144 mm[Hg] Julio César Kaba pulse rate 70 /min Clare Kaba oxygen saturation, oximetry 98 % Clare Kaba respiratory rate E&M 16 /min Cesar Kaba weight E&M 180 [lb_av] Clare Kaba blood pressure, diastolic 89 mm[Hg] Sergey Agrawal RN blood pressure, systolic 149 mm[Hg] Jorge Nghia GEE pulse rate 76 /min Jorge Nghia GEE oxygen saturation, oximetry 97 % Jorge Nghia GEE respiratory rate E&M 16 /min Jorge Shen salomeferoz GEE weight E&M 185 [lb_av] Jorge Agrawal RN ALLERGIES Allergy Name Onset Date Reaction Criticality Status DOXYCYCLINE High Criticality active RESULTS Date Observation Value Provider Reference Range Interpretation Location [facility] 406 [facility] hematocrit, blood 44.0 % [facility] international normalized ratio (INR) 1.0 [facility] D-dimer quantitative mcg/mL 0.30 ug/mL [facility] alanine aminotransferase (SGPT), serum 38 1/L [facility] aspartate aminotransferase (SGOT), serum 20 1/L [facility] [place] creatinine, serum 0.77 mg/dL [facility] potassium, serum 3.8 mmol/L [facility] sodium, serum 137 mmol/L [facility] HISTORY OF MEDICATION USE Medication Status Instructions Dates Provider Indications Com ments ZOLOFT 25 MG ORAL TABLET active as needed Jorge Agrawal RN LISINOPRIL-HYDRO CHLOROTHIAZIDE 20-25 MG ORAL TABLET completed 1 daily 4 - 2 Jorge Agrawal RN CARVEDILOL 6.25 MG ORAL TABLET active 1 bid 2 Greg Price MD PROZAC 20 MG ORAL CAPSULE completed once daily- - 9 Jorge Agrawal RN VERAPAMIL HCL ER 240 MG ORAL TABLET EXTENDED RELEASE completed daily - 9 Jorge Agrawal RN VERAPAMIL HCL CR 240 MG CP24 (VERAPAMIL HCL) completed ONE TAB. DAILY 1 - 8 Jorge Agrawal RN VENLAFAXINE HCL 75 MG ORAL TABLET completed one tab daily - 8 Jorge Agrawal RN PRILOSEC 20 MG ORAL CAPSULE DELAYED RELEASE active one tab daily as needed Jorge Agrawal RN LEVOXYL 100 MCG ORAL TABLET active ONE TAB. DAILY Jorge Agrawal RN SOCIAL HISTORY Date Observation Value Provider smoking history, tot al pack/year 22 Jorge Agrawal RN seatbelt usage 100 % Greg Price MD smoking/tobacco cess ation, patient education and counseling yes Greg Price MD drug use no Greg Moya passive cigarette sm rickey exposure yes Jorge Agrawal RN smoking history, tot al pack/day 1/2 Jorge Agrawal RN smoking history, tot al pack/year 21 Jorge Agrawal RN cigarette use yes Jorge Agrawal RN smoking, date started 1991 Jorge sheldon RN social history reviewed E&M reviewed Jorge Agrawal RN smoking status smoker - current status unknown Jorge Agrawal RN social history reviewed E&M reviewed Greg Price MD smoking/tobacco cess ation, patient education and counseling yes Jorge Agrawal RN social history reviewed E&M reviewed Jorge Agrawal RN smoking/tobacco cess ation, patient education and counseling yes Jorge Agrawal RN social history reviewed E&M reviewed Jorge Agrawal RN smoking/tobacco cess ation, patient education and counseling yes Jorge Agrawal RN social history reviewed E&M reviewed Jorge Agrawal RN drug use none Greg Moya social history E&M Marital Statu s: L arya with family/friends E thnicity: Jorge Agrawal RN social history reviewed E&M reviewed Jorge Agrawal RN physical exercise, f requency, days per week yes [employer] caffeine use, averag e drinks per day yes [employer] alcohol use, average drinks per day none [employer] number of years as a smoker 10 years or m ore [employer] smoking status Smoker [employer] MENTAL STATUS Date Observation Value Provider assessment of judgme nt and insight E&M Alert and oriented to time, place and person. Mood and affect are normal. Jorge Agrawal RN assessment of judgme nt and insight E&M Alert and oriented to time, place and person. Mood and affect are normal. Greg Price MD assessment of judgme nt and insight E&M Alert and oriented to time, place and person. Mood and affect are normal. Jorge Agrawal RN assessment of judgme nt and insight E&M Alert and oriented to time, place and person. Mood and affect are normal. Jorge Agrawal RN assessment of judgme nt and insight E&M Alert and oriented to time, place and person. Mood and affect are normal. Jorge Agrawal RN assessment of judgme nt and insight E&M Alert and oriented to time, place and person. Mood and affect are normal. Jorge Agrawal RN INSURANCE PROVIDERS Payer name Policy type / Coverage type [facility] party ID [employer] [facility] [id number] TREATMENT PLAN Date Name Performer chest pain: T he following medications were removed from the medication list: Lisinopril-hydrochlorothiazide 20-25 Mg Tabs (Lisinopril-hydrochlorothiazide) ..... 1 daily Her updated medication list for this problem includes: Carvedilol 6.25 Mg Tabs (Carvedilol) ..... 1 bid BP today: 113/74 Prior BP: 134/84 (10/20/2011) E vent Monitor: Chest pain, sinus arrhythmia, sinus tachycardia, premature ventricular contractions, ventricular, sinus rhythm. [employer] (04/22/2009) N uclear Stress Findings: EF - 72%. N o scintigraphic evidence of stress induced ischemia or wall motion abnormality. L VEF is within normal limits. [facility] (12/07/2008) Greg Price MD chest pain: T he following medications were removed from the medication list: Lisinopril-hydrochlorothiazide 20-25 Mg Tabs (Lisinopril-hydrochlorothiazide) ..... 1 daily Her updated medication list for this problem includes: Carvedilol 6.25 Mg Tabs (Carvedilol) ..... 1 bid BP today: 113/74 Prior BP: 134/84 (10/20/2011) E vent Monitor: Chest pain, sinus arrhythmia, sinus tachycardia, premature ventricular contractions, ventricular, sinus rhythm. [employer] (04/22/2009) N uclear Stress Findings: EF - 72%. N o scintigraphic evidence of stress induced ischemia or wall motion abnormality. L VEF is within normal limits. [facility] (12/07/2008) Greg Price MD chest pain: T he following medications were removed from the medication list: Lisinopril-hydrochlorothiazide 20-25 Mg Tabs (Lisinopril-hydrochlorothiazide) ..... 1 daily Her updated medication list for this problem includes: Carvedilol 6.25 Mg Tabs (Carvedilol) ..... 1 bid BP today: 113/74 Prior BP: 134/84 (10/20/2011) E vent Monitor: Chest pain, sinus arrhythmia, sinus tachycardia, premature ventricular contractions, ventricular, sinus rhythm. [facility] (04/22/2009) N uclear Stress Findings: EF - 72%. N o scintigraphic evidence of stress induced ischemia or wall motion abnormality. L VEF is within normal limits. [facility] (12/07/2008) Greg Price MD : T he following medications were removed from the medication list: Verapamil Hcl Cr 240 Mg Cr-tabs (Verapamil hcl) ..... Daily Her updated medication list for this problem includes: Lisinopril 20 Mg Tabs (Lisinopril) ..... Once a day Lisinopril-hydrochlorothiazide 20-25 Mg Tabs (Lisinopril-hydrochlorothiazide) ..... 1 daily BP today: 134/84 Prior BP: 140/78 (03/04/2010) E vent Monitor: Chest pain, sinus arrhythmia, sinus tachycardia, premature ventricular contractions, ventricular, sinus rhythm. [facility] (04/22/2009) N uclear Stress Findings: EF - 72%. N o scintigraphic evidence of stress induced ischemia or wall motion abnormality. L VEF is within normal limits. [facility] (12/07/2008) E chocardiogram: Normal Left Ventricular Function. EF 61%. Normal MV & AV. Mild Mitral Regurgitation. No Mitral Valve Prolapse. [facility] (09/06/2009) Greg Price MD : T he following medications were removed from the medication list: Verapamil Hcl Cr 240 Mg Cr-tabs (Verapamil hcl) ..... Daily Her updated medication list for this problem includes: Lisinopril 20 Mg Tabs (Lisinopril) ..... Once a day Lisinopril-hydrochlorothiazide 20-25 Mg Tabs (Lisinopril-hydrochlorothiazide) ..... 1 daily BP today: 134/84 Prior BP: 140/78 (03/04/2010) E vent Monitor: Chest pain, sinus arrhythmia, sinus tachycardia, premature ventricular contractions, ventricular, sinus rhythm. [facility] (04/22/2009) N uclear Stress Findings: EF - 72%. N o scintigraphic evidence of stress induced ischemia or wall motion abnormality. L VEF is within normal limits. [facility] (12/07/2008) E chocardiogram: Normal Left Ventricular Function. EF 61%. Normal MV & AV. Mild Mitral Regurgitation. No Mitral Valve Prolapse. [facility] (09/06/2009) Greg Price MD SVT: H er updated medication list for this problem includes: Verapamil Hcl Cr 240 Mg Cr-tabs (Verapamil hcl) ..... Daily BP today: 140/78 Prior BP: 132/85 (06/04/2009) E vent Monitor: Chest pain, sinus arrhythmia, sinus tachycardia, premature ventricular contractions, ventricular, sinus rhythm. [facility] (04/22/2009) N uclear Stress Findings: EF - 72%. No scintigraphic evidence of stress induced ischemia or wall motion abnormality. L VEF is within normal limits. [facility] (12/07/2008) E chocardiogram: Normal Left Ventricular Function. EF 61%. Normal MV & AV. Mild Mitral Regurgitation. No Mitral Valve Prolapse. [facility] (09/06/2009) Greg Price MD SVT: H er updated medication list for this problem includes: Verapamil Hcl Cr 240 Mg Cr-tabs (Verapamil hcl) ..... Daily BP today: 140/78 Prior BP: 132/85 (06/04/2009) E vent Monitor: Chest pain, sinus arrhythmia, sinus tachycardia, premature ventricular contractions, ventricular, sinus rhythm. [facility] (04/22/2009) N uclear Stress Findings: EF - 72%. No scintigraphic evidence of stress induced ischemia or wall motion abnormality. L VEF is within normal limits. [facility] (12/07/2008) E chocardiogram: Normal Left Ventricular Function. EF 61%. Normal MV & AV. Mild Mitral Regurgitation. No Mitral Valve Prolapse. [facility] (09/06/2009) Greg Price MD SVT: H er updated medication list for this problem includes: Verapamil Hcl Cr 240 Mg Cr-tabs (Verapamil hcl) ..... Daily BP today: 140/78 Prior BP: 132/85 (06/04/2009) N uclear Stress Findings: EF - 72%. N o scintigraphic evidence of stress induced ischemia or wall motion abnormality. L VEF is within normal limits. [facility] (12/07/2008) C arotid Doppler/Duplex: Normal carotid duplex scan. No change since 04-17-2009 study. [facility] (09/06/2009) Greg Price MD SVT: H er updated medication list for this problem includes: Verapamil Hcl Cr 240 Mg Cr-tabs (Verapamil hcl) ..... Daily BP today: 140/78 Prior BP: 132/85 (06/04/2009) E vent Monitor: Chest pain, sinus arrhythmia, sinus tachycardia, premature ventricular contractions, ventricular, sinus rhythm. [facility] (04/22/2009) N uclear Stress Findings: EF - 72%. No scintigraphic evidence of stress induced ischemia or wall motion abnormality. L VEF is within normal limits. [facility] (12/07/2008) E chocardiogram: Normal Left Ventricular Function. EF 61%. Normal MV & AV. Mild Mitral Regurgitation. No Mitral Valve Prolapse. [facility] (09/06/2009) Greg Price MD test results: O rders: T OBACCO USE CESSATION INTERMEDIATE 3-10 MINUTES (CPT-89492) Greg Price MD test results: H er updated medication list for this problem includes: Verapamil Hcl Cr 240 Mg Cr-tabs (Verapamil hcl) ..... Daily BP today: 132/85 Prior BP: 144/81 (02/26/2009) E vent Monitor: Chest pain, sinus arrhythmia, sinus tachycardia, premature ventricular contractions, ventricular, sinus rhythm. [facility] (04/22/2009) N uclear Stress Findings: EF - 72%. N o scintigraphic evidence of stress induced ischemia or wall motion abnormality. L VEF is within normal limits. [facility] (12/07/2008) E chocardiogram: Mild LV systolic dysfunction. M ild mitral regurgitation. M ild tricuspid regurgitation. [facility] (08/24/2008) Greg Price MD test results: H er updated medication list for this problem includes: Verapamil Hcl Cr 240 Mg Cr-tabs (Verapamil hcl) ..... Daily BP today: 132/85 Prior BP: 144/81 (02/26/2009) E vent Monitor: Chest pain, sinus arrhythmia, sinus tachycardia, premature ventricular contractions, ventricular, sinus rhythm. [facility] (04/22/2009) N uclear Stress Findings: EF - 72%. N o scintigraphic evidence of stress induced ischemia or wall motion abnormality. L VEF is within normal limits. [facility] (12/07/2008) E chocardiogram: Mild LV systolic dysfunction. M ild mitral regurgitation. M ild tricuspid regurgitation. [facility] (08/24/2008) Greg Price MD test results: H er updated medication list for this problem includes: Verapamil Hcl Cr 240 Mg Cr-tabs (Verapamil hcl) ..... Daily BP today: 132/85 Prior BP: 144/81 (02/26/2009) N uclear Stress Findings: EF - 72%. N o scintigraphic evidence of stress induced ischemia or wall motion abnormality. L VEF is within normal limits. [facility] (12/07/2008) C arotid Doppler/Duplex: Normal [facility] (04/17/2009) Greg Price MD test results: H er updated medication list for this problem includes: Verapamil Hcl Cr 240 Mg Cr-tabs (Verapamil hcl) ..... Daily BP today: 132/85 Prior BP: 144/81 (02/26/2009) E vent Monitor: Chest pain, sinus arrhythmia, sinus tachycardia, premature ventricular contractions, ventricular, sinus rhythm. [facility] (04/22/2009) N uclear Stress Findings: EF - 72%. N o scintigraphic evidence of stress induced ischemia or wall motion abnormality. L VEF is within normal limits. [facility] (12/07/2008) E chocardiogram: Mild LV systolic dysfunction. M ild mitral regurgitation. M ild tricuspid regurgitation. [facility] (08/24/2008) Greg Price MD f/u- chest discomfor t-rapid heart rate-letter fxd: H er updated medication list for this problem includes: Verapamil Hcl Cr 180 Mg Cp24 (Verapamil hcl) ..... One tab. daily BP today: 144/81 Prior BP: 149/89 (08/28/2008) N uclear Stress Findings: EF - 72%. N o scintigraphic evidence of stress induced ischemia or wall motion abnormality. L VEF is within normal limits. & #13;[facility] (12/07/2008) E chocardiogram: Mild LV systolic dysfunction. M ild mitral regurgitation. M ild tricuspid regurgitation. [facility] (08/24/2008) Orders: E KG (CPT-42851) Greg Price MD f/u- chest discomfor t-rapid heart rate-letter fxd: O rders: T OBACCO USE CESSATION INTERMEDIATE 3-10 MINUTES (CPT-29201) Greg Price MD f/u- chest discomfor t-rapid heart rate-letter fxd: H er updated medication list for this problem includes: Verapamil Hcl Cr 180 Mg Cp24 (Verapamil hcl) ..... One tab. daily BP today: 144/81 Prior BP: 149/89 (08/28/2008) N uclear Stress Findings: EF - 72%. N o scintigraphic evidence of stress induced ischemia or wall motion abnormality. L VEF is within normal limits. & #13;[facility] (12/07/2008) E chocardiogram: Mild LV systolic dysfunction. M ild mitral regurgitation. M ild tricuspid regurgitation. [facility] (08/24/2008) Greg Price MD svt: H er updated medication list for this problem includes: Verapamil Hcl 120 Mg Tabs (Verapamil hcl) BP today: 149/89 Prior BP: / () Greg Price MD Date Name Event Recorder HISTORY OF PROCEDURES Procedure Date Procedure Name Provider Procedure Notes S tatus EKG Greg Price MD complete d
== END 2024-10-19 12:45 | disposition home or self-care (01) ==
LOC: ANHASCIMG 12:45
PROVIDERS: PCP Family Medicine; Visit Provider Podiatrist Foot & Ankle Surgery
DX: M19.072 Primary osteoarthritis, left ankle and foot (principal)
CPT/HCPCS: 73630

== ENCOUNTER 2024-11-06 07:42 | Outpatient (CLI) | payer OTHER, SELFPAY ==
--- OUTSIDE RECORDS SUMMARY | 2024-11-06 07:48 | XMS_ITS | CONTINUITY OF CARE DOCUMENT ---
Author Name amilcar, amilcar Address Unknown Organization [facility] Address [address] [place] [address] Phone [phone] Care Team Providers Care Fourth Hand Name Role Phone Greg Price MD Unavailable [phone] MARJ BURGESS MD Unavailable [phone] MARJ BURGESS MD Unavailable [phone] PROBLEMS Condition Status Date Provider Notes SVT-12/04 NUC EF 72 active ? Jorge Agrawal RN OBESITY active Greg Price MD TOBACCO ABUSE active ? Greg Price MD ENCOUNTERS Date Type Provider Location Encounter Diagnosis - In-person encounter Office Visit Greg Price MD [place] [facility] - In-person encounter Office Visit Greg Price MD [place] [facility] - In-person encounter Office Visit Greg Price MD [place] [facility] - In-person encounter Office Visit Greg Price MD [place] [facility] - In-person encounter Office Visit Greg Price MD [place] [facility] TOBACCO ABUSE - In-person encounter Office Visit Greg Price MD [place] [facility] SVT-12/04 NUC EF 72OBESITY VITAL [...] Range Interpretation Location platelet count 406 10*3/mm3 [facility] [place] hematocrit, blood 44.0 % [facility] international normalized ratio (INR) 1.0 [facility] D-dimer quantitative mcg/mL 0.30 ug/mL [facility] alanine aminotransferase (SGPT), serum 38 1/L [facility] aspartate aminotransferase (SGOT), serum 20 1/L [facility] [place] creatinine, serum 0.77 mg/dL [facility] potassium, serum 3.8 mmol/L [facility] sodium, serum 137 mmol/L [facility] [place] HISTORY OF MEDICATION USE Medication [...] Payer name Policy type / Coverage type [facility] green party ID [place] [employer] [facility] [id number] TREATMENT PLAN Date Name Performer chest pain: [...] VEF is within normal limits. [facility] (12/07/2008) Greg Price MD chest pain: [...] VEF is within normal limits. [facility] (12/07/2008) Greg Price MD chest pain: [...] VEF is within normal limits. [facility] (12/07/2008) Greg Price MD : T [...] VEF is within normal limits. [facility] (12/07/2008) E chocardiogram: Normal Left Ventricular Function. EF 61%. Normal MV & AV. Mild Mitral Regurgitation. No Mitral Valve Prolapse. [facility] (09/06/2009) Greg Price MD : T [...] VEF is within normal limits. [facility] (12/07/2008) E chocardiogram: Normal Left Ventricular Function. EF 61%. Normal MV & AV. Mild Mitral Regurgitation. No Mitral Valve Prolapse. [facility] (09/06/2009) Greg Price MD SVT: H [...] VEF is within normal limits. [facility] (12/07/2008) E chocardiogram: Normal Left Ventricular Function. EF 61%. Normal MV & AV. Mild Mitral Regurgitation. No Mitral Valve Prolapse. [facility] (09/06/2009) Greg Price MD SVT: H [...] VEF is within normal limits. [facility] (12/07/2008) E chocardiogram: Normal Left Ventricular Function. EF 61%. Normal MV & AV. Mild Mitral Regurgitation. No Mitral Valve Prolapse. [facility] (09/06/2009) Greg Price MD SVT: H er updated medication list for this problem includes: Verapamil Hcl Cr 240 Mg Cr-tabs (Verapamil hcl) ..... Daily BP today: 140/78 Prior BP: 132/85 (06/04/2009) N uclear Stress Findings: EF - 72%. N o scintigraphic evidence of stress induced ischemia or wall motion abnormality. L VEF is within normal limits. [facility] (12/07/2008) C arotid Doppler/Duplex: Normal carotid duplex scan. No change since 04-17-2009 study. [facility] (09/06/2009) Greg Price MD SVT: H [...] VEF is within normal limits. [facility] (12/07/2008) E chocardiogram: Normal Left Ventricular Function. EF 61%. Normal MV & AV. Mild Mitral Regurgitation. No Mitral Valve Prolapse. [facility] (09/06/2009) Greg Price MD test results: O rders: T OBACCO USE CESSATION INTERMEDIATE 3-10 MINUTES (CPT-21348) Greg Price MD test results: H er updated medication list for this problem includes: Verapamil Hcl Cr 240 Mg Cr-tabs (Verapamil hcl) ..... Daily BP today: 132/85 Prior BP: 144/81 (02/26/2009) E vent Monitor: Chest pain, sinus arrhythmia, sinus tachycardia, premature ventricular contractions, ventricular, sinus rhythm. [facility] N uclear Stress Findings: EF - 72%. N o scintigraphic evidence of stress induced ischemia or wall motion abnormality. L VEF is within normal limits. [facility] (12/07/2008) E chocardiogram: Mild LV systolic dysfunction. M ild mitral regurgitation. M ild tricuspid regurgitation. [facility] (08/24/2008) Greg Price MD test results: H er updated medication list for this problem includes: Verapamil Hcl Cr 240 Mg Cr-tabs (Verapamil hcl) ..... Daily BP today: 132/85 Prior BP: 144/81 (02/26/2009) E vent Monitor: Chest pain, sinus arrhythmia, sinus tachycardia, premature ventricular contractions, ventricular, sinus rhythm. [facility] N uclear Stress Findings: EF - 72%. N o scintigraphic evidence of stress induced ischemia or wall motion abnormality. L VEF is within normal limits. [facility] (12/07/2008) E chocardiogram: Mild LV systolic dysfunction. M ild mitral regurgitation. M ild tricuspid regurgitation. [facility] (08/24/2008) Greg Price MD test results: H er updated medication list for this problem includes: Verapamil Hcl Cr 240 Mg Cr-tabs (Verapamil hcl) ..... Daily BP today: 132/85 Prior BP: 144/81 (02/26/2009) N uclear Stress Findings: EF - 72%. N o scintigraphic evidence of stress induced ischemia or wall motion abnormality. L VEF is within normal limits. [facility] (12/07/2008) C arotid Doppler/Duplex: Normal [facility] (04/17/2009) Greg Price MD test results: [...] VEF is within normal limits. [facility] (12/07/2008) E chocardiogram: Mild LV systolic dysfunction. M ild mitral regurgitation. M ild tricuspid regurgitation. [place] [facility] (08/24/2008) Greg Price MD f/u- chest discomfor [...] VEF is within normal limits. [facility] (12/07/2008) E chocardiogram: Mild LV systolic dysfunction. M ild mitral regurgitation. M ild tricuspid regurgitation. [place] [facility] (08/24/2008) Orders: E KG (CPT-72643) Greg Price MD f/u- chest discomfor t-rapid heart rate-letter fxd: O rders: T OBACCO USE CESSATION INTERMEDIATE 3-10 MINUTES (CPT-74449) Greg Price MD f/u- chest discomfor t-rapid [...] is within normal limits. & #13;[facility] (12/07/2008) E chocardiogram: Mild LV systolic dysfunction. M ild mitral regurgitation. M ild tricuspid regurgitation. [place] [facility] (08/24/2008) Greg Price MD svt: H er updated medication list for this problem includes: Verapamil Hcl 120 Mg Tabs (Verapamil hcl) BP today: 149/89 Prior BP: / () Greg Price MD Date Name Event Recorder HISTORY OF PROCEDURES Procedure Date Procedure Name Provider Procedure Notes S tatus EKG Greg Price MD complete d
--- OUTSIDE RECORDS SUMMARY | 2024-11-06 07:48 | XMS_ITS | Continuity of Care Document ---
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 [address], [place], [address], [place]. tel:[phone] Family History Family Member Type Diagnosis Age At Onset No Information Payers Payer name Insurance type Covered republican ID Authoriza tion(s) No Information Social History [...]
[2024-11-06 20:35] LABS: Alanine Aminotransferase 29 U/L (6-35); Alkaline Phosphatase 43 U/L (38-126); Anion Gap 5 mmol/L (4-12); Aspartate Amino Transferase 56 U/L (14-36); Bilirubin,Total 0.4 mg/dL (0.2-1.3); Blood Urea Nitrogen 18 mg/dL (7-17); Calcium 8.5 mg/dL (8.4-10.2); Carbon Dioxide 28 mmol/L (22-30); Chloride 105 mmol/L (98-107); Cholesterol 155 mg/dL (0-200); Estimated Glomerular Filt Rate > 60; Glucose 80 mg/dL (65-110); HDL Direct 48 mg/dL; Potassium 4.1 mmol/L (3.4-5.0); Sodium 138 mmol/L (137-145); Triglycerides 33 mg/dL (<150)
[2024-11-06 20:47] LABS: LDL Cholesterol Direct 80 mg/dL
[2024-11-06 21:07] LABS: Thyroid Stimulating Hormone 0.234 uIU/mL (0.465-4.680)
[2024-11-06 21:55] LABS: Free T4 Free Thyroxine 1.83 ng/dL (0.78-2.19)
== END 2024-11-06 07:43 | disposition home or self-care (01) ==
PROVIDERS: PCP Family Medicine; Visit Provider Physician Assistant
DX: E03.9 Hypothyroidism, unspecified (principal); E78.5 Hyperlipidemia, unspecified
CPT/HCPCS: 36415; 80053; 80061; 84439; 84443; 84480

== ENCOUNTER 2025-04-14 05:42 | Day surgery (SDC) | payer OTHER, SELFPAY ==
--- OUTSIDE RECORDS SUMMARY | 2009-11-18 03:45 | XMS_ITS | Continuity of Care Document ---
Author Organization [facility] Address [address] [place] [address] [place] [address] Phone Care Team Providers Care Automation Tester Name Role Phone Js Yin Unavailable Unavailable Procedures Procedure Date Office/outpatient Visit, New Advance Directives Directive Yes / No Effective Date File Name No Information Encounters Encounter Description Practice Location Reason(s) For Visit Diagnoses Date Provider Providers Copied on Encounter Office/outpat ient Visit, New [facility], [address], [place], [place], [id number], [place] tel:[phone] [facility] No Information 4-201 0 Gurwindertemovolodymyr Weinstein. [address] [facility] [address], [place], [address], [place]. tel:[phone] Family History Family Member Type Diagnosis Age At Onset No Information Payers Payer name Insurance type Covered green party ID Authoriza tion(s) No Information Social History [...]
[2025-03-15 12:42] VITALS: BMI 30.4
[2025-04-03 11:42] VITALS: BMI 31.2
[2025-04-14 06:15] VITALS: BMI 31.4
[2025-04-14 06:16] VITALS: BP 137/83; PULSE 62; RESP 16; TEMP 36.3; O2SAT 97
--- NOTE | 2025-04-14 07:07 | P.PNAN_ITS ---
Anes - Initial Pre Proc Eval Procedure: Operation Date: 04/14/25 07:30 Proposed Procedures p Screening Colonoscopy - João Morin MD Date/Time: 04/14/25 07:07 Surgeon: João Morin MD Patient Data Age: 50 Gender: F Height: 1.57 m Weight: 77.8 kg Last Vital Signs Temp 36.3 C L 04/14/25 06:16 Pulse 62 04/14/25 06:16 Resp 16 04/14/25 06:16 BP 137/83 04/14/25 06:16 Pulse Ox 97 04/14/25 06:16 O2 Del Method Room Air 04/14/25 06:16 Allergies Allergy/AdvReac Type Severity Reaction Status Date / Time bupropion (Wellbutrin) Allergy Intermediate Swelling Verified 04/14/25 06:07 of Lip/Tongue/Throat doxycycline Allergy Intermediate Hives Verified 04/14/25 06:07 Home Medications ?Medication ?Instructions ?Recorded ?Confirmed ?Type fluoxetine 20 mg capsule 25 mg PO DAILY 05/31/2203/28 History levothyroxine 112 mcg tablet 112 mcg PO DAILY 05/31/22 04/14/25 History lisinopril 30 mg tablet 30 mg PO DAILY 05/31/2203/28 History Patient hx anesthesia problems: none Family hx anesthesia problems: none Results Review: All pre-operative results and documents have been reviewed as part of the pre- operative evaluation. [facility] Past Medical History Medical History History of hypertension History of hypothyroidism Calcification of right breast on mammography Surgical History Surgical History History of incision and drainage 03/30/2024 -1. Rectal exam under anesthesia 2. Incision and drainage of complicated perirectal abscess Hx of tonsillectomy History of History of endometrial ablation History of hysteroscopy History of incision and drainage Perirectal abscess in 2019 09/27/23 rectal exam under anesthesia, incision and drainage of complex perirectal abscess Dr. Patel Family History Family History Mother Diabetes mellitus Sepsis Father Heart attack Emphysema of lung Social History Social History Smoking packs per day: 1 Smoking cigarettes per day: 20.0 Years smoked: 22 Smoking pack-years: 22.00 Smoking status: Former smoker Tobacco type: cigarettes Smoking end date: 07/17/11 Alcohol intake: never Drinks per week: 1 Alcohol use details: RARE Substance use: never Substance use type: does not use Do You Feel Safe in your Home?: Yes Lack of Transportation: No Lack of Food: Never True Current Housing: I Have Housing Concerned About Future Housing: No Difficulty Paying Gas/Electric Bills: No Difficulty Paying for Meds: No Currently Unemployed: No Education: Don't Know Difficulty w/ Childcare or Family Care: No Living arrangements: with family Spiritual care concerns: No Anes - Eval Final PreProcedure Day of Procedure 04/14/25 07:07 Patient weight: normal Heart: regular rate and rhythm Lungs: clear to auscultation Airway: Mallampati scale class 1 Neurological: alert and oriented Last oral intake: >/= 8 hours ASA classification: II Emergent: no Anesthetic plan: proceed Anesthesia type and monitoring: monitored anesthesia care and standard monitoring Results Review: All pre-operative results and documents have been reviewed as part of the pre- operative evaluation. Informed Consent: The patient's anesthetic plan and its attendant risks and benefits were discussed with the patient/family/POA. Questions were solicited and answers provided to the satisfaction of the patient/family/POA.
[2025-04-14] MEDS: LACTATED RINGERS 1,000 ML 150 ML IV CONT (07:26)
--- NOTE | 2025-04-14 07:37 | PM.IMHP ---
H&P: HPI History of Present Illness Date/Time: 04/14/25 07:37 Chief Complaint: History of rectal abscess Narrative: this patient has been seen by Colorectal surgery in [facility] for recurrent disease. She is now referred for colonoscopy to rule out inflammatory bowel disease. Review of Systems Review of Systems: All systems reviewed & are unremarkable except as noted in HPI and below PMFSH Past Medical History Medical History History of hypertension History of hypothyroidism Calcification of right breast on mammography Surgical History Surgical History History of incision and drainage 03/30/2024 -1. Rectal exam under anesthesia 2. Incision and drainage of complicated perirectal abscess Hx of tonsillectomy History of History of endometrial ablation History of hysteroscopy History of incision and drainage Perirectal abscess in 201809/27/23 rectal exam under anesthesia, incision and drainage of complex perirectal abscess Dr. Patel Family History Family History Mother Diabetes mellitus Sepsis Father Heart attack Emphysema of lung Social History Social History Smoking packs per day: 1 Smoking cigarettes per day: 20.0 Years smoked: 22 Smoking pack-years: 22.00 Smoking status: Former smoker Tobacco type: cigarettes Smoking end date: 07/17/11 Alcohol intake: never Drinks per week: 1 Alcohol use details: RARE Substance use: never Substance use type: does not use Do You Feel Safe in your Home?: Yes Lack of Transportation: No Lack of Food: Never True Current Housing: I Have Housing Concerned About Future Housing: No Difficulty Paying Gas/Electric Bills: No Difficulty Paying for Meds: No Currently Unemployed: No Education: Don't Know Difficulty w/ Childcare or Family Care: No Living arrangements: with family Spiritual care concerns: No Meds Home Medications and Allergies Home Medications ?Medication ?Instructions ?Recorded ?Confirmed ?Type fluoxetine 20 mg capsule 25 mg PO DAILY 05/31/22 04/14/25 History levothyroxine 112 mcg tablet 112 mcg PO DAILY 05/31/22 04/14/25 History lisinopril 30 mg tablet 30 mg PO DAILY 05/31/22 04/14/25 History Allergies Allergy/AdvReac Type Severity Reaction Status Date / Time bupropion (Wellbutrin) Allergy Intermediate Swelling Verified 04/14/25 06:07 of Lip/Tongue/Throat doxycycline Allergy Intermediate Hives Verified 04/14/25 06:07 Vital Signs Vital Signs - 24 hr 04/14/25 06:16 Temperature 97.3 F L Pulse Rate 62 Respiratory Rate 16 Blood Pressure 137/83 Pulse Oximetry 97 Oxygen Delivery Room Air Exam Const: General: cooperative and healthy appearing Resp: Effort & Inspection: normal respiratory effort and able to speak in complete sentences Auscultation: clear to auscultation bilaterally Cardio: Rate: regular rate Rhythm: regular rhythm GI: Inspection: normal to inspection GI Palp: No No hepatosplenomegaly present Auscultation: normal bowel sounds Rectal Exam: deferred Skin: General skin exam: normal color Psych: Appearance: grossly normal Mental Status: mental status grossly normal Assessment and Plan Assessment and plan (1) Tami-rectal abscess: Code(s): K61.1 - Rectal abscess Status: Acute Assessment and Plan: The patient is deemed a good candidate for the procedure. Consent signed. Will proceed.
[2025-04-14 07:58] VITALS: BP 127/68; PULSE 63; RESP 15; O2SAT 100
[2025-04-14 08:08] VITALS: BP 90/68; PULSE 64; RESP 16; O2SAT 100
[2025-04-14 08:18] VITALS: BP 122/90; PULSE 54; RESP 16; O2SAT 100
== END 2025-04-14 08:24 | disposition home or self-care (01) ==
PROVIDERS: PCP Family Medicine; Visit Provider Internal Medicine Gastroenterology
PROC: 0DJD8ZZ Inspection of Lower Intestinal Tract, Via Natural or Artificial Opening Endoscopic (ICD-10-PCS; CPT 45378; principal; 2025-04-14 07:30)
DX: K61.1 Rectal abscess (principal)
CPT/HCPCS: 45378

== ENCOUNTER 2025-04-27 10:48 | Outpatient (CLI) | payer OTHER, SELFPAY ==
--- OUTSIDE RECORDS SUMMARY | 2009-11-18 03:45 | XMS_ITS | Continuity of Care Document ---
Author Organization [facility] Address [id number] [place] [address] [place] [address] Phone Care Team Providers Care Machine Records Units Supervisor Name Role Phone Js Yin Unavailable Unavailable Procedures Procedure Date Office/outpatient Visit, New Advance Directives Directive Yes / No Effective Date File Name No Information Encounters Encounter Description Practice Location Reason(s) For Visit Diagnoses Date Provider Providers Copied on Encounter Office/outpat ient Visit, [facility], [address], [place], [place], [id number], [place] tel:[phone] [facility] No Information 4-201 0 Gurwindertemovolodymyr Weinstein. [address] [facility] [address], [place], [address], [place]. tel:[phone] Family History Family Member Type Diagnosis Age At Onset No Information Payers Payer name Insurance type Covered democrat ID Authoriza tion(s) No Information Social History Type Description Quantity Date Captured Comments Sex Female Smoking Status No Information Chief Complaint And Reason For Visit No Information Reason For Referral Reason For Referral No Information History Of Present Illness Encounter Date Complaint History Of Prese nt Illness No Information Functional Status Date Functional Assessmen t No Information Instructions Date Instruction Additional Infor mation No Information Assessments Type Assessment Date No Information Patient Care Teams Name Effective Dates (start - stop) Status Members No Information
--- NOTE | ~2025-04-27 | MR_ITS ---
EXAMINATION: MR pelvis wo/w con DATE: 04/27/2025 12:16 INDICATION: Anal fistula TECHNIQUE: Magnetic resonance imaging (MRI) of the pelvis was performed without and with 16 mL Multihance intravenous contrast. Fullfield sequences of the pelvis included axial and coronal T2-weighted SS FSE, coronal 2D FIESTA, axial T1-weighted FSPGR, axial dual-echo T1-weighted FSPGR and axial T1 weighted LAVA. Small field of view sequences included axial, sagittal and coronal T2-weighted FSE centered on the uterus and adnexa. Postcontrast sequences included a time course axial T1-weighted LAVA with full-field of view of the pelvis. COMPARISON: CT dated 03/29/2024 FINDINGS: There is a transsphincteric perianal fistula which originates at the 6:30 position of the anus which extends across the left posterior aspect of the external sphincter and into the subcutaneous fat at the inferior left buttock and extending to skin surface along the inferior left gluteal cleft. The tract which demonstrates mild increased T2 signal and enhancement measures approximately 10 cm in length. It appears significant smaller in diameter with no discrete fluid along the tract and with decrease in wall thickening along the tract and surrounding inflammatory stranding. No evident associated abscess. The visualized portions of the more proximal colon and small bowel are normal. Normal appendix. Atrophic uterus with a few T2 hyperintense nonenhancing nabothian cysts at the cervix. Bladder is normal. No free fluid in the pelvis. No pathologically enlarged pelvic or inguinal lymphadenopathy. IMPRESSION: 1. 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 Reviewed, dictated and finalized at location A. IMPRESSION: 1. 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
--- OUTSIDE RECORDS SUMMARY | 2025-04-27 11:15 | XMS_ITS | Clinical Summary ---
Author Organization [facility] Address [address] [place] [address] Care Team Providers Care Tire Shop Mechanic Name Role Phone Abhijeet Woodruff MD Primary Care Provider [phone] Source Comments [facility],non-owned Affiliates and Associated Physician Practices is amultiple site organization consisting of ambulatory clinics and hospital sitesin [place], [place], [place] and [place]. This disclosure is being madepursuant to the Care Everywhere program and may not contain all information available regarding this patient. Last updated 18.[facility] [employer] Allergies Active Allergy Reactions Criticality Noted Date Comments Doxycycline Anaphylaxis High 02/26/2009 Bupropion Anaphylaxis High 05/23/2024 Medications * Be aware that medications may not be up to date on this document. Alwaysverify current medications with the patient. FLUoxetine (PROzac) 20 MG capsule Take 1 (one) capsule by mouth once daily 03/24/2024 Active lisinopril (Prinivil; Zestril) 30 MG tablet Active levothyroxine (Synthroid) 125 MCG tablet Active amoxicillin-cla vulanate (Augmentin) 875-125 MG tablet Take 1 (one) tablet by mouth 2 times daily with morning and evening meal 20 tablet 02/22/2025 Active Active Problems Problem Noted Date Diagnosed Date History of perirectal abscess 07/28/2024 Resolved Problems Problem Noted Date Diagnosed Date Resolved Date Pnvjldr-tn-lig 07/28/2024 07/28/2024 Encounters Date Type Department Care Team Description 04/05/2025 Orders Only [facility] - General Surgery [address] [place] [address] Chantal Villanueva MD Oeerrtb-ik-zld 2025 11:00 AM CDT Office Visit [facility] - General Surgery [address] [place] [address] Chantal Villanueva MD History of perirectal abscess (Primary Dx) 2025 Travel 02/13/2025 Orders Only [facility] PHYS SURGERY [address] [place] [address] Beverley Silvestre MD 02/10/2025 3:50 PM CDT Anesthesia Event [facility] STEVE OP [address] [place] [address] Luis Daniel Johnston MD Johnson, Christopher A, MD 02/10/2025 9:50 AM CDT - 02/10/2025 11:53 AM CDT Surgery [facility] STEVE OP [address] [place] [address] Chantal Villanueva MD EUA AND IRRIGATION/DEBRIDE MENT STEVE RECTAL ABSCESS WITH PACKING 02/09/2025 7:18 PM CDT - 02/11/2025 2:15 PM CDT Hospital Encounter [facility] 6S ACUTE [address] [place] [address] Chantal Villanueva MD Colorectal Surgery Discharge Disposition: Home or Self Care 02/08/2025 12:00 PM CDT Office Visit [facility]ician [facility] - General Surgery [address] [place] [phone] Chantal Villanueva MD Nefuivs-pu-vsf (Primary Dx); History of perirectal abscess 02/08/2025 Travel from Last 3 Months Social History Tobacco Use Types Packs/Day Years Used Date Smoking Tobacco: Former Cigarettes 2 - 1993 Smokeless Tobacco: Never Tobacco Cessation:Counseling Given: Not Answered Alcohol Use Standard Drinks/Week Comments Not Currently 0 (1 standard drink = 0.6 oz pur e alcohol) AUDIT-C Answer Date Recorded Q1: How often do you have a drink containing alcohol? Never 02/10/2025 Q2: How many drinks containi ng alcohol do you have on a typical day when you are drinking? Patient does not drink Q3: How often do you have si x or more drinks on one occasion? Never 02/10/2025 Overall Financial Resource Strain (CARDIA) Answe r Date Recorded How hard is it for you to pa y for the very basics like food, housing, medical care, and heating? Not hard at all 02/10/2025 [facility] [place] of Occupat ional Health - Occupational Stress Questionnaire Answer Date Recorded Do you feel stress - tense, restless, nervous, or anxious, or unable to sleep at night because your mind is troubled all the time - these days? Not at all 02/10/2025 Hunger Vital Sign Answer Date Recorded Within the past 12 months, y ou worried that your food would run out before you got the money to buy more. Never true 02/11/20 25 Within the past 12 months, t he food you bought just didn't last and you didn't have money to get more. Never true 02/10/2025 PRAPARE - Transportation Answer Date Re corded In the past 12 months, has l ack of transportation kept you from medical appointments or from getting medications? No 01/26 In the past 12 months, has l ack of transportation kept you from meetings, work, or from getting things needed for daily living? No 02/10/2025 Housing Stability Vital Sign Answer Mann e Recorded In the last 12 months, was t here a time when you were not able to pay the mortgage or rent on time? No 02/10/2025 In the past 12 months, how m any times have you moved where you were living? 0 02/10/2025 At any time in the past 12 m [place], were you homeless or living in a chcf (including now)? No 02/10/2025 Comments No Sex and Gender Information Value Date Recorded Sex Assigned at Female 05/23/2024 2:45 PM COMMERCIAL LOAN OFFICER Legal Sex Female 2:39 PM CDT Gender Identity Female 05/23/2024 2:45 PM COMMERCIAL LOAN OFFICER Sexual Orientation Straight 05/23/2024 2: 45 PM COMMERCIAL LOAN OFFICER Last Filed Vital Signs Vital Sign Reading Time Taken Comments Blood Pressure 114/75 2025 11:32 AM CDT Pulse 70 2025 11:32 AM CDT Temperature 36.6 C (97.9 F) 2025 11:32 AM CDT Respiratory Rate 18 2025 11:32 AM CDT Oxygen Saturation 98% 2025 11:32 AM CDT Inhaled Oxygen Concentration - - Weight 78.3 kg (172 lb 9.6 oz) 2025 11:32 AM CDT Height 160 cm (5' 3) 2025 11:32 AM CDT Body Mass Index 30.57 2025 11:32 AM CDT Plan of Treatment Upcoming Encounters Date Type Department Care Team (Late st Contact Info) Description 05/03/2025 12:00 PM COMMERCIAL LOAN OFFICER Office Visit [facility] - General Surgery [address] [facility] [place] [phone] Chantal Villanueva MD [address] [phone] Health Maintenance Due Date Last Done Comments COLOGUARD (AGES 45-75) - COL ON CA SCREENING 1974 COLON MONITORING 1974 COLONOSCOPY - COLON CA SCREENING 1974 CT COLONOGRAPHY - COLON CA SCREENING 1974 Colorectal Cancer Screening 1974 FIT - COLON CA SCREENING 1974 FLEX SIG - COLON CA SCREENING 1974 LIPID TESTING 1974 MAMMOGRAM 1974 HIV SCREENING 1989 HEPATITIS C SCREENING 02/16/1992 DTAP/TDAP/TD VACCINES (1 - Tdap) 1993 HEPATITIS B VACCINE (1 of 3 - 19+ 3-dose series) 1993 PAP SMEAR 1995 PNEUMOCOCCAL VACCINE 50+ (1 of 1 - PCV) 02/21/2024 ZOSTER VACCINE (1 of 2) 02/21/2024 DEPRESSION SCREENING 06/28/2024 COVID-19 VACCINE (1 - 2023-2 5 season) 2025 INFLUENZA VACCINE (#1) 2025 SCREENING FOR DIABETES 02/12/2028 , 02/10/2025, 02/09/2025 HIB VACCINE Aged Out No longer eligi ble based on patient's age to complete this topic HPV VACCINE Aged Out No longer eligi ble based on patient's age to complete this topic MENINGOCOCCAL (Group B) VACCINE SHARED DECISION-MAKING Aged Out No longer eligible based on patient's age to complete this topic MENINGOCOCCAL GROUPS A/C/Y/W VACCINE Aged Out No longer eligible b ased on patient's age to complete this topic Procedures Procedure Name Priority Date/Time Associated Diagnosis Comments PHOSPHORUS BLOOD Routine 02/11/2025 5:33 AM CDT MAGNESIUM BLOOD Routine 02/11/2025 5:33 AM CDT BASIC METABOLIC PANEL (CALCIUM TOTAL) Routine 02/11/2025 5:33 AM CDT CBC W/O DIFFERENTIAL Routine 02/11/2025 5:33 AM CDT CULTURE FUNGUS OTHER+FUNGUS SMEAR Routine 02/10/2025 4:24 PM CDT CULTURE AFB+SMEAR STAT 02/10/2025 4:2 4 PM CDT CULTURE FLUID+GRAM STAIN Routine 02/10/2025 4:24 PM CDT CULTURE ANAEROBE Routine 02/10/2025 4:24 PM CDT ENDOTRACHEAL TUBE NOTE Routine 02/10/2025 4:08 PM CDT DC KAYLA SUBQ TISSUE 20 SQ CM/< 02/10/2025 3:25 PM CDT Infection Special Needs PRONE - 02/09 @ 1947 CW BLOOD TYPE VERIFICATION Routine 02/10/2025 7:30 AM CDT TYPE + SCREEN PANEL STAT 02/10/2025 6 :42 AM CDT PHOSPHORUS BLOOD Routine 02/10/2025 6:41 AM CDT MAGNESIUM BLOOD Routine 02/10/2025 6:41 AM CDT BASIC METABOLIC PANEL (CALCIUM TOTAL) Routine 02/10/2025 6:41 AM CDT CBC W/O DIFFERENTIAL Routine 02/10/2025 6:[address] ABDOMEN PELVIS W CONTRAST STAT 02/09/2025 10:27 PM CDT History of perirectal abscess HCG BETA BLOOD QUANTITATIVE STAT 02/09/2025 8:07 PM CDT BASIC METABOLIC PANEL (CALCIUM TOTAL) STAT 02/09/2025 8:07 PM CDT CBC W AUTO DIFFERENTIAL STAT 02/09/2025 8:07 PM CDT from Last 3 Months Results * (ABNORMAL) CBC W/O DIFFERENTIAL (02/11/2025 5:33 AM CDT) Only the most recent of2 resultswithin the time period is included. WBC 14.7(H) 4.0 - 10.7 x10E9/L 02/11/2025 5:57 AM CDT [facility] RBC Count 4.09 3.90 - 5.20 x10E12/L 02/11/2025 5:57 AM CDT [facility] Hemoglobin 12.0 11.9 - 15.8 g/dL 02/11/2025 5:57 AM CDT [facility] Hematocrit 34.8 34.8 - 46.1 % 02/11/2025 5:57 AM CDT [facility] MCV 85.1 80.0 - 98.0 fL 02/11/2025 5:57 AM CDT [facility] MCH 29.3 26.7 - 33.6 pg 02/11/2025 5:57 AM CDT [facility] MCHC 34.5 31.7 - 36.3 g/dL 02/11/2025 5:57 AM [facility] RDW-CV 11.2(L) 11.3 - 14.8 % 02/11/2025 5:57 AM [facility] Platelet Count 286 150 - 420 x10E9/L 02/11/2025 5:57 AM [facility] MPV 10.7 7.8 - 11.4 fL 02/11/2025 5:57 AM [facility] Blood BLOOD SPECIMEN / Unknown Lab Venipuncture / Unknown 02/11/2025 5:33 AM CDT 02/11/2025 5:51 AM CDT us Chantal Villanueva MD LAB - HEMATOLOGY ORDERABLE S Final Result [facility] [address] [place] [address], [facility] [phone] * (ABNORMAL) BASIC METABOLIC PANEL (CALCIUM TOTAL) (02/11/2025 5:33 AM CDT) Only the most recent of3 resultswithin the time period is included. BUN 13 7 - 26 mg/dL 02/11/2025 6:20 AM [facility] Creatinine 0.70 0.56 - 0.96 mg/dL 02/11/2025 6:20 AM [facility] Sodium 137 136 - 145 mmol/L 02/11/2025 6:20 AM [facility] Potassium 4.1 3.5 - 4.5 mmol/L 02/11/2025 6:20 AM [facility] Chloride 103 98 - 107 mmol/L 02/11/2025 6:20 AM [facility] CO2 30(H) 22 - 29 mmol/L 02/11/2025 6:20 AM [facility] Glucose 138(H) 70 - 99 mg/dL 02/11/2025 6:20 AM [facility] Calcium 8.6 8.4 - 10.2 mg/dL 02/11/2025 6:20 AM [facility] Anion Gap 4(L) 6 - 16 02/11/2025 6:20 AM CDT [facility] BUN/Creatinine Ratio 19 7 - 23 02/11/2025 6:20 AM [facility] Osmolality Calculated 286 275 - 295 mOsm/kg 02/11/2025 6:20 AM [facility] eGFR by CKD-EPI >90 >=90 mL/min/1.7 3 m2 02/11/2025 6:20 AM [facility] Comment:Estimated Glomerular Filtration Rate (eGFR) calculated using the CKD-EPI Creatinine Equation (2020), per the National Kidney Foundation and [place] [employer] of Nephrology recommendations. Blood BLOOD SPECIMEN / Unknown Lab Venipuncture / Unknown 02/11/2025 5:33 AM CDT 02/11/2025 5:51 AM CDT Chantal Villanueva MD LAB - CHEMISTRY ORDERABLES Final Result Performing Organization Address City/[facility]/ZIP Co de Phone Number [address] [address], [facility] [phone] * PHOSPHORUS BLOOD (02/11/2025 5:33 AM CDT) Only the most recent of2 resultswithin the time period is included. Phosphorus 3.5 2.9 - 5.1 mg/dL 02/11/2025 6:20 AM [facility] Blood BLOOD SPECIMEN / Unknown Lab Venipuncture / Unknown 02/11/2025 5:33 AM CDT 02/11/2025 5:51 AM CDT us Chantal Villanueva MD LAB - CHEMISTRY ORDERABLES Final Result [address] [address], [place] [phone] * MAGNESIUM BLOOD (02/11/2025 5:33 AM CDT) Only the most recent of2 resultswithin the time period is included. Magnesium 2.1 1.6 - 2.6 mg/dL 02/11/2025 6:20 AM [facility] Blood BLOOD SPECIMEN / Unknown Lab Venipuncture / Unknown 02/11/2025 5:33 AM CDT 02/11/2025 5:51 AM CDT Chantal Villanueva MD LAB - CHEMISTRY ORDERABLES Final Result Performing Organization Address City/[facility]/ZIP Co de Phone Number [facility] [address] [place] [address], [facility] [phone] * CULTURE FUNGUS OTHER+FUNGUS SMEAR (02/10/2025 4:24 PM CDT) Culture No fungus isolated LILIANA 03/12/2025 6:41 AM CDT [facility] Fungus Stain No yeast or hyphae seen 03/12/2025 6:41 AM CDT [facility] Microbiology SPECIMEN FROM ABSCESS / Unknown Collection / Unknown 02/10/2025 4:24 PM CDT 02/10/2025 4:54 PM CDT Chantal Villanueva MD LAB - MICROBIOLOGY ORDERAB LES Final Result Performing Organization Address City/[facility]/ZIP Co de Phone Number [facility] [address] [place] [address], [facility] [phone] * (ABNORMAL) CULTURE FLUID+GRAM STAIN (02/10/2025 4:24 PM CDT) Culture Heavy Klebsiella oxytoca(AA) LILIANA 02/15/2025 10:32 AM CDT [facility] Culture Light Streptococcus sanguinis(AA) 02/15/2025 10:32 AM CDT [facility] Culture Light Lactobacillus species(AA) 02/15/2025 10:32 AM CDT [facility] Culture Light Actinomyces odontolyticus(AA) 02/15/2025 10:32 AM CDT [facility] Culture Moderate Streptococcus mitis/oralis(AA) 02/15/2025 10:32 AM CDT [facility] Gram Stain Moderate Polymorphonuclear cells(AA) 02/15/2025 10:32 AM CDT [facility] Gram Stain Rare Gram-positive cocci(AA) 02/15/2025 10:32 AM CDT [facility] Fluid BODY FLUID SPECIMEN / Unknown Collection / Unknown 02/10/2025 4:24 PM CDT 02/10/2025 4:54 PM CDT Narrative Organism Antibiotic Method Susceptibility Klebsiella oxytoca Amikacin LILIANA <=2 ug/mL: Susceptible Klebsiella oxytoca Ampicillin-sulbactam LILIANA 16 ug/mL: Intermediate Klebsiella oxytoca Cefazolin LILIANA 8 ug/mL: Resistant Klebsiella oxytoca Cefepime LILIANA <=1 ug/mL: Susceptible Klebsiella oxytoca Ceftriaxone LILIANA <=1 ug/mL: Susceptible Klebsiella oxytoca Ciprofloxacin LILIANA <=0.25 ug/mL: Susceptible Klebsiella oxytoca Gentamicin LILIANA <=1 ug/mL: Susceptible Klebsiella oxytoca Meropenem LIILANA <=0.25 ug/mL: Susceptible Klebsiella oxytoca Piperacillin-tazobactam LILIANA <=4 ug/mL: Susceptible Klebsiella oxytoca Tobramycin LILIANA <=1 ug/mL: Susceptible Klebsiella oxytoca Trimethoprim-sulfamethoxazole LILIANA <=20 ug/mL: Susceptible us Chantal Villanueva MD LAB - MICROBIOLOGY ORDERAB LES Final Result Performing Organization Address City/[facility]/ZIP Co de Phone Number [facility] [address] [place] [address], [facility] [phone] * CULTURE AFB+SMEAR (02/10/2025 4:24 PM CDT) Culture No acid-fast bacillus isolated 03/26/2025 10:40 AM CDT [facility] AFB Smear No acid-fast bacilli seen 03/26/2025 10:40 AM CDT [facility] Microbiology SPECIMEN FROM ABSCESS / Unknown Collection / Unknown 02/10/2025 4:24 PM CDT 02/10/2025 4:54 PM CDT us Chantal Villanueva MD LAB - MICROBIOLOGY ORDERAB LES Final Result [facility] [address] [place] [address], [place] [phone] * (ABNORMAL) CULTURE ANAEROBE (02/10/2025 4:24 PM CDT) Culture Heavy Prevotella bivia(A) 02/14/2025 1:31 PM CDT [facility] Comment:Beta-lactamase posit priya Microbiology SPECIMEN FROM ABSCESS / Unknown Collection / Unknown 02/10/2025 4:24 PM CDT 02/10/2025 4:54 PM CDT Chantal Villanueva MD LAB - MICROBIOLOGY ORDERAB LES Final Result [facility] [address] [place] [address], [facility] [phone] * ETT LINE PERFORMABLE (02/10/2025 4:08 PM CDT) Narrative See Johnson DO - 02/10/2025 4:08 PM CDT See Johnson DO 02/10/2025 4:09 PM Endotracheal Tube Placement: Patient Location: OR. Intubation Event Date/Time: 02/10/2025 4:00 PM Procedure: intubation ([id number]) Procedure Section: Sedation: under general anesthesia. Indications for Airway Management: anesthesia Procedure pretreatments used? No Induction: modified rapid sequence Patient Position: sniffing Mask Ventilation: easy. Blade Type: Chago Blade Size: 3 Laryngoscopy View: grade 1 (full cords) Tube: endotracheal tube Placement: oral Tube type: cuff - inflated Tube Size (MM): 7 Depth of Insertion (CM): 22 Measured From: lips Cuff volume (mL): 8 Cuff Inflated With: air Number of Attempts: 1. Placement Verified By: direct visualization, bilateral breath sounds, CO2 monitor and chest auscultation Tube secured with: adhesive tape. Dentition unchanged? Yes Difficult Airway? No. Procedure Start Time: 02/10/2025 4:00 PM. Staff Section Anesthesia Provider: See Johnson DO, Performed the procedure Luis Daniel Johnston MD GENERAL ANESTHESIA ORDERABLES Final Result * BLOOD TYPE VERIFICATION (02/10/2025 7:30 AM CDT) ABO Rh A POS 02/10/2025 8:0 5 AM CDT [facility] LAB Blood Bank BLOOD SPECIMEN / Unknown Lab Venipuncture / Unknown 02/10/2025 7:30 AM CDT 02/10/2025 7:36 AM CDT Chantal Villanueva MD LAB - BLOOD BANK ORDERABLE S Final Result Performing Organization Address [facility]/ZIP Co de Phone Number [facility] LAB [address] [place] [address], [facility] [phone] * TYPE + SCREEN PANEL (02/10/2025 6:42 AM CDT) Antibody Screen NEG 7:46 AM CDT [facility] LAB ABO Rh A POS 02/10/2025 7:46 AM CDT [facility] B[facility]OD [facility] LAB Blood Bank BLOOD SPECIMEN / Unknown Lab Venipuncture / Unknown 02/10/2025 6:42 AM CDT 02/10/2025 7:02 AM CDT Chantal Villanueva MD LAB - BLOOD BANK ORDERABLE S Final Result Performing Organization Address [facility] de Phone Number [facility]OD [facility] LAB [address] [place] [address], [facility] [phone] * CT Abdomen Pelvis W Contrast (02/09/2025 10:27 PM CDT) Anatomical Region Laterality Modality Abdomen, Pelvis Computed Tomogra phy 02/10/2025 12:1 3 AM CDT Impressions 02/10/2025 4:53 AM CDT Impression: 1.Perianal abscess measuring 6.7 x 2.9 x 2.0 cm arising from the left lateral wall of the rectum, concerning for fistulization. These findings were discussed with the patient's care provider, Dr Villalobos by Dr. Sal Vallejo via telephone at 02/10/2025 12:14 AM with readback comprehension and verification. > Dictated by Sal Vallejo DO, (vice president of communications). > Dictated by Cylinder Die Machine Operator I, Giuliano Rawls MD have personally reviewed and interpreted this examination/study. > Interpreting Provider: Giuliano Rawls MD on 02/10/2025 4:53 AM Narrative 02/10/2025 4:53 AM CDT PROCEDURE: CT ABDOMEN PELVIS W CONTRAST, DATE/TIME OF EXAM: 02/09/2025 10:27 PM, LOCATION [facility] INDICATION: K61.1: Perirectal abscess Ordering Provider Reason For Exam: Evaluation of perirectal abscess, possible fistula - CT NEEDS TO GO DOWN TO MID THIGH TECHNIQUE: CT of the abdomen and pelvis was performed following the uneventful administration of IOPAMIDOL 76 % IV SOLN:100 mL of Isovue 370 intravenous contrast according to standard protocol. COMPARISON: None. Findings: Lower Chest: Normal. Liver: Normal. Gallbladder and Bile Ducts: The gallbladder is decompressed. Spleen: Normal. Pancreas: Normal. Adrenals: Normal. Kidneys: Normal. Gastrointestinal: Small hiatal hernia. The stomach and visualized loops of large and small bowel are otherwise unremarkable. Normal appendix. Mesentery/Peritoneum/Retroperitoneum: Normal. Bladder: Normal. Reproductive Organs: The uterus is normal. Vasculature: Atherosclerotic calcification of the aorta and its branch vessels. Bones: Bone windows demonstrate no suspicious lytic or blastic lesions. The visible osseous structures are intact. Soft tissues: Perianal fluid collection with peripheral enhancement and a tiny focus of gas measuring 6.7 x 2.9 x 2.0 cm arising from the left lateral wall of the rectum and nearly tracks to the cutaneous surface, stranding stretches medially towards the intergluteal cleft. Procedure Note Giuliano Rawls MD - 02/10/2025 PROCEDURE: CT ABDOMEN PELVIS W CONTRAST, DATE/TIME OF EXAM: 02/09/2025 10:27 PM, LOCATION [facility] INDICATION: K61.1: Perirectal abscess Ordering Provider Reason For Exam: Evaluation of perirectal abscess, possible fistula - CT NEEDS TO GO DOWN TO MID THIGH TECHNIQUE: CT of the abdomen and pelvis was performed following the uneventful administration of IOPAMIDOL 76 % IV SOLN:100 mL of Isovue 370 intravenous contrast according to standard protocol. COMPARISON: None. Findings: Lower Chest: Normal. Liver: Normal. Gallbladder and Bile Ducts: The gallbladder is decompressed. Spleen: Normal. Pancreas: Normal. Adrenals: Normal. Kidneys: Normal. Gastrointestinal: Small hiatal hernia. The stomach and visualized loopsof large and small bowel are otherwise unremarkable. Normal appendix. Mesentery/Peritoneum/Retroperitoneum: Normal. Bladder: Normal. Reproductive Organs: The uterus is normal. Vasculature: Atherosclerotic calcification of the aorta and its branch vessels. Bones: Bone windows demonstrate no suspicious lytic or blastic lesions.The visible osseous structures are intact. Soft tissues: Perianal fluid collection with peripheral enhancement shira tiny focus of gas measuring 6.7 x 2.9 x 2.0 cm arising from the left lateral wall of the rectum and nearly tracks to the cutaneous surface, stranding stretches medially towards the intergluteal cleft. Impression: 1.Perianal abscess measuring 6.7 x 2.9 x 2.0 cm arising from the left lateral wall of the rectum, concerning for fistulization. These findings were discussed with the patient's care provider, Juan M by Dr. Sal Vallejo via telephone at 02/10/2025 12:14 AM with readback comprehension and verification. > Dictated by Sal Vallejo DO, (vice president of communications). > Dictated by Cylinder Die Machine Operator I, Giuliano Rawls MD have personally reviewed and interpreted this examination/study. > Interpreting Provider: Giuliano Rawls MD on 02/10/2025 4:53 AM us Chantal Villanueva MD CT ORDERABLES Final Resu lt * (ABNORMAL) CBC W AUTO DIFFERENTIAL (02/09/2025 8:07 PM CDT) WBC 13.1(H) 4.0 - 10.7 x10E9/L 02/09/2025 8:34 PM [facility] RBC Count 4.38 3.90 - 5.20 x10E12/L 02/09/2025 8:34 PM [facility] Hemoglobin 13.0 11.9 - 15.8 g/dL 02/09/2025 8:34 PM [facility] Hematocrit 37.2 34.8 - 46.1 % 02/09/2025 8:34 PM [facility] MCV 84.9 80.0 - 98.0 fL 02/09/2025 8:34 PM [facility] MCH 29.7 26.7 - 33.6 pg 02/09/2025 8:34 PM [facility] MCHC 34.9 31.7 - 36.3 g/dL 02/09/2025 8:34 PM [facility] RDW-CV 11.4 11.3 - 14.8 % 02/09/2025 8:34 PM [facility] Platelet Count 286 150 - 420 x10E9/L 02/09/2025 8:34 PM [facility] MPV 10.6 7.8 - 11.4 fL 02/09/2025 8:34 PM [facility] Neutrophil % 64.8 41.0 - 74.0 % 02/09/2025 8:34 PM [facility] Lymphocyte % 24.8 17.0 - 47.0 % 02/09/2025 8:34 PM [facility] Monocyte % 9.2 3.0 - 11.0 % 02/09/2025 8:34 PM [facility] Eosinophil % 0.6 0.0 - 7.0 % 02/09/2025 8:34 PM [facility] Basophil % 0.2 0.0 - 1.6 % 02/09/2025 8:34 PM [facility] Immature Granulocytes % 0.4 0.0 - 1.0 % 02/09/2025 8:34 PM [facility] Neutrophil Absolute 8.48(H) 1.60 - 7.50 x10E9/L 02/09/2025 8:34 PM [facility] Lymphocyte Absolute 3.25 1.00 - 4.40 x10E9/L 02/09/2025 8:34 PM [facility] Monocyte Absolute 1.20(H) 0.15 - 1.00 x10E9/L 02/09/2025 8:34 PM [facility] Eosinophil Absolute 0.08 0.00 - 0.60 x10E9/L 02/09/2025 8:34 PM [facility] Basophil Absolute 0.03 0.00 - 0.13 x10E9/L 02/09/2025 8:34 PM [facility] Blood BLOOD SPECIMEN / Unknown Lab Venipuncture / Unknown 02/09/2025 8:07 PM CDT 02/09/2025 8:22 PM CDT us Chantal Villanueva MD LAB - HEMATOLOGY ORDERABLE S Final Result Performing Organization Address [facility] Co de Phone Number [address] [address], [place] [phone] * HCG BETA BLOOD QUANTITATIVE (02/09/2025 8:07 PM CDT) Beta-hCG Total Quantitative <3 mIU/mL 02/10/2025 5:16 AM CDT [facility] Comment: HCG Numeric Result Interpretation: Non- Females: < 5 mIU/mL Post-Menopausal Females: < 7 mIU/mL This assay is cleared for use in the early detection of only. It is not approved for any other uses such as tumor marker screening, tumor marker monitoring, etc. and should not be used for any other purposes. Blood BLOOD SPECIMEN / Unknown Lab Venipuncture / Unknown 02/09/2025 8:07 PM CDT 02/09/2025 8:22 PM CDT us Chantal Villanueva MD LAB - CHEMISTRY ORDERABLES Final Result Performing Organization Address [facility] Co de Phone Number [address] [address], [place] [phone] from Last 3 Months Insurance [facility] Advance Directives * Full Code (Latest Code Status on File) Date Activated Date Inactivated Comments 02/09/2025 7:38 PM 02/11/2025 3:25 PM Care Teams [employer] Relationship Specialty Start Date End Date Abhijeet Woodruff MD [address] [place] [address] [id number] PCP - General Family Medicine 07/13/24
== END 2025-04-27 10:49 | disposition home or self-care (01) ==
PROVIDERS: PCP Family Medicine; Visit Provider Colon & Rectal Surgery
DX: K60.329 Anal fistula, complex, unspecified (principal)
CPT/HCPCS: 72197; A9577

== ENCOUNTER 2025-05-16 07:08 | Outpatient (CLI) | payer OTHER, SELFPAY ==
[2025-05-16 19:11] LABS: Alanine Aminotransferase 34 U/L (6-35); Albumin Level 4.4 g/dL (3.5-5.1); Alkaline Phosphatase 41 U/L (38-126); Anion Gap 7 mmol/L (4-12); Aspartate Amino Transferase 39 U/L (14-36); Bilirubin,Total 0.6 mg/dL (0.2-1.3); Blood Urea Nitrogen 20 mg/dL (7-17); Calcium 9.4 mg/dL (8.4-10.2); Carbon Dioxide 29 mmol/L (22-30); Chloride 100 mmol/L (98-107); Cholesterol 186 mg/dL (0-200); Estimated Glomerular Filt Rate > 60; Glucose 90 mg/dL (65-110); HDL Direct 43 mg/dL; Potassium 4.2 mmol/L (3.4-5.0); Sodium 136 mmol/L (137-145); Total Protein 7.5 g/dL (6.3-8.2); Triglycerides 66 mg/dL (<150)
[2025-05-16 19:21] LABS: Free T4 Free Thyroxine 2.31 ng/dL (0.78-2.19)
[2025-05-16 19:47] LABS: Thyroid Stimulating Hormone 0.038 uIU/mL (0.465-4.680); Total Triiodothyronine (T3) 1.09 NG/ML (0.82-1.58)
== END 2025-05-16 07:09 | disposition home or self-care (01) ==
PROVIDERS: PCP Family Medicine; Visit Provider Physician Assistant
DX: E03.9 Hypothyroidism, unspecified (principal); E78.5 Hyperlipidemia, unspecified
CPT/HCPCS: 36415; 80053; 80061; 84439; 84443; 84480